=== PATIENT | female | born 1960 | race Caucasian/White ===

== ENCOUNTER 2020-03-24 12:00 | Outpatient (CLI) | payer OTHER, SELFPAY | END 2020-03-24 12:01 | disposition home or self-care (01) | LOC: SLEEP 03-25 12:22 | PROVIDERS: Family Provider Family Medicine; Visit Provider Internal Medicine | DX: G47.33 Obstructive sleep apnea (adult) (pediatric) (principal) | CPT/HCPCS: G0399 ==

== ENCOUNTER 2020-04-24 13:40 | Outpatient (CLI) | payer OTHER, SELFPAY ==
--- NOTE | 2020-04-24 13:51 | MM_ITS ---
WS: [id number] BILATERAL DIGITAL SCREENING MAMMOGRAPHY WITH CAD CLINICAL INFORMATION: SCREENING HISTORY: Screening mammogram. No current complaints. COMPARISON: TECHNIQUE: Bilateral CC and MLO views. FINDINGS: Scattered fibroglandular densities bilaterally. No suspicious focal mass, asymmetry, calcifications, or architectural distortion. Stable ovoid nodules right breast. No evidence of malignancy. Lucent leatha tered calcification right breast MM/[place] [id number] IMPRESSION: BI-RADS: 2-Benign FOLLOW UP: 1 Year Follow-up Recommend return to annual screening mammography.
--- NOTE | 2020-04-24 14:35 | XR_ITS ---
WS: [id number] DEXA (DUAL ENERGY X-RAY ABSORPTIOMETRY) Bone mineral density was performed using a [employer] machine. HISTORY: ASYMPTOMATIC POSTMENOPAUSAL STATUS COMPARISON: None available. Lumbar spine BMD (L1-L4): 1.046 g/cm2 T score: -1.1 Z score: -0.5 Total hip BMD: Left: 1.033 g/cm2. T score: 0.2 Z score: 0.7 Right: 1.039 g/cm2. T score: 0.2 Z score: 0.8 10 year probability of a major osteoporotic fracture is 7%. XR/XR DEXA axial skeleton* [id number] IMPRESSION: OSTEOPENIA based upon the WHO classification for females.
--- NOTE | 2020-04-24 14:36 | XR_ITS ---
WS: [id number] RIGHT FOOT: 3 VIEW(S) TECHNIQUE: AP, oblique and lateral. HISTORY: PAIN IN RIGHT FOOT COMPARISON: None available. No acute fracture or dislocation. Normal tarsal/metatarsal alignment. No soft tissue abnormality or bone destruction. Very tiny calcaneal spur. Enthesopathy at the Achilles tendon. XR/XR foot RT min 3V* [id number] IMPRESSION: Tiny calcaneal spur. No fracture.
== END 2020-04-24 13:41 | disposition home or self-care (01) ==
LOC: RADSHAW 13:46
PROVIDERS: PCP Internal Medicine; Visit Provider Internal Medicine
DX: Z12.31 Encounter for screening mammogram for malignant neoplasm of breast (principal); Z78.0 Asymptomatic menopausal state; M79.671 Pain in right foot; M77.31 Calcaneal spur, right foot; M85.89 Other specified disorders of bone density and structure, multiple sites
CPT/HCPCS: 73630; 77067; 77080

== ENCOUNTER 2020-05-20 04:41 | Emergency (ER) | payer OTHER, SELFPAY ==
[2020-05-20] VITALS (8 sets, daily range): BP systolic 96–160; BP diastolic 56–91; PULSE 74–93; RESP 15–19; TEMP 36.4; O2SAT 95–99; BMI 32.2
--- NOTE | 2020-05-20 04:48 | XR_ITS ---
WS: [id number] Exam: XR chest 1V portable [id number] Date/Time of Exam: 05/20/2020 4:48 AM Reason For Exam: Chest pain Comparison 01/09/2011. Findings: The lungs are clear and fully expanded. Costophrenic angles are sharp. No infiltrates. Bronchovascula r relief appears normal. Cardiac silhouette is unremarkable. Bony elements are intact. XR/XR chest 1V portable [id number] IMPRESSION: Unremarkable chest radiograph.
--- NOTE | 2020-05-20 04:48 | ECG_ITS ---
[facility] Test Date: 2020-05-20 Pat Name: Carrie Bowen Department: Room: Gender: Female Sheriffs Officer: : 1960 Requested By: Abril Tejada Order Number: [id number] Avis MD: Shantell Peterson M.D. Measurements Intervals [place] Rate: 88 P: 68 IN: 147 QRS: -3 QRSD: 86 T: 60 QT: 358 QTc: 434 Interpretive Statements SINUS RHYTHM LOW QRS VOLTAGE IN PRECORDIAL LEADS [QRS DEFLECTION < 1.0 mV IN CHEST LEADS] No previous ECG available for comparison Electronically Signed On 05-20-2020 21:44:26 ICE SELLER by Shnatell Peterson M.D. [email or web address] medical [id number] f
[2020-05-20] MEDS: nitroglycerin 0.4 mg sublingual Tablet SUBLINGUAL (04:59)
[2020-05-20 05:13] LABS: Basophils # 0.1 10^3/uL (0.0-0.1); Basophils % 0.4 %; Eosinophils # 0.2 10^3/uL (0.0-0.8); Eosinophils % 1.2 %; Hematocrit 45.2 % (37.0-47.0); Hemoglobin 14.4 g/dL (11.5-15.3); Lymphocytes # 1.5 10^3/uL (0.8-4.8); Lymphocytes % 11.4 %; Mean Corpuscular HGB Conc 31.9 g/dL (30.0-36.0); Mean Corpuscular Hemoglobin 29.8 pg (28.0-34.0); Mean Corpuscular Volume 93.4 fL (81-99); Mean Platelet Volume 11.6 fL (7.4-10.4); Monocytes # 1.3 10^3/uL (0.2-0.9); Monocytes % 9.8 %; Neutrophils % 76.7 %; Nucleated Red Blood Cells % 0 %; Platelet Count 168 10^3/cmm (130-400); Red Blood Count 4.84 10^6/uL (4.1-5.3); Red Cell Distribution Width 12.7 % (12.1-15.1); White Blood Count 12.9 10^3/uL (4.0-10.0)
[2020-05-20] MEDS: ondansetron 2 mg/ML SDV 2 mL 4 MG IVP (05:20)
[2020-05-20] MEDS: morphine 4 mg/mL SDV 1 mL IVP (05:21)
--- NOTE | 2020-05-20 05:29 | ED_ITS ---
Documented by User: Abril Andres MD 05/22/20 11:00 HPI - Chest Pain General: Chief Complaint: Chest Pain Stated Complaint: cp Time Seen by Provider: 05/20/20 04:50 History of Present Illness: HPI narrative: This patient is a 59-year-old female who comes in today with chest pain. She actually corrects me when I say chest pain and refers to it as pressure. Her symptoms started off and on during the day yesterday while she was at work. The current episode started at 230 when it woke her from sleep. She sleeps with a CPAP but after she took that off she fell like she was somewhat short of breath. The pain is severe in her right shoulder as well. She said yesterday during the day she had some pain in her jaw. She is not sweaty or lightheaded. She does not have nausea or vomiting. She has a chronic cough which she attributes to lisinopril. She has not been sick with fevers. She notes that the pain seems to be worse when she lays down. She has a family history of cardiac disease but none personally. She has never had a stress test. She has hypertension, prediabetes, elevated cholesterol. complaint: chest heaviness Onset (ago): day(s) (1) Timing of current episode: episodic Onset: awoke with symptoms Pain location: substernal Pain radiation: right shoulder Severity: severe Quality: tightness and heaviness Relieving factors: nothing Exacerbating factors: supine Associated symptoms: Reports dyspnea; Deny diaphoresis, fever(s), leg edema or nausea Review of Systems General: Reports: 10 or more systems reviewed and unremarkable except in HPI and below Const: Denies: fever(s) or diaphoresis Eyes: Denies: change in vision ENMT: Denies: odynophagia Card: Reports: chest pain; Denies: swelling of feet/ankles Resp: Reports: dyspnea GI: Denies: nausea : Denies: flank pain or difficulty voiding Musc: Denies: neck pain or back pain Skin/Breast: Denies: rash Neuro: Denies: headache(s), numbness in extremities or weakness in extremities Compa/Lymph: Denies: easy bruising or easy bleeding PFS ED PFSH: Medical History (Reviewed 05/21/20 @ 22:33 by James Fisher MD, [facility]) Dyslipidemia Hypertension Migraines Restless leg syndrome Sleep apnea Surgical History (Reviewed 05/21/20 @ 22:33 by James Fisher MD, [facility]) History of hysterectomy Hx of appendectomy Hx of cholecystectomy Family History (Reviewed 05/21/20 @ 22:33 by James Fisher MD, [facility]) Denies family history of CAD (coronary artery disease) Social History (Reviewed 05/21/20 @ 22:33 by James Fisher MD, [facility]) Smoking and tobacco status: never smoked Alcohol intake: never Substance/Drug Use: never Household members: spouse Housing: House Physical Exam Const: COMMON NORMALS: no acute distress, patient oriented x3, no limitations and alert GENERAL APPEARANCE: cooperative and comfortable HENMT: HEAD & SCALP: normal to inspection FACE & SINUS: normal facial exam Eye: GENERAL EYE: appearance normal, both eyes and all related structures Neck/C-Spine: COMMON NORMALS: supple, no meningeal signs and no JVD Chest: COMMONS NORMALS: normal inspection of the chest Resp: COMMON NORMALS: normal respiratory effort, No use of accessory muscles and clear to auscultation bilaterally AUSCULTATION: clear to auscultation bilaterally Cardio: COMMON NORMALS: no JVD, regular rate, regular rhythm and No murmurs present (Cardio) RATE: regular rate RHYTHM: regular rhythm GI: COMMON NORMALS: Normal to inspection, nondistended, normoactive bowel sounds present, Soft to palpation and non-tender INSPECTION: Yes normal to inspection AUSCULTATION: Yes normoactive bowel sounds PALPATION: Yes Soft to palpation Back/Pelvis: COMMON NORMALS: thoracic and lumbar spine normal to inspection Extremity: COMMON NORMALS: normal to inspection Neuro: COMMON NORMALS: patient oriented x3, moves all extremities, no focal motor deficits and no sensory deficits noted SENSORIUM/ORIENTATION: Yes alert MENINGEAL SIGNS: Yes no meningeal signs Psych: COMMON NORMALS: mental status grossly normal, cooperative and normal affect Skin: COMMON NORMALS: no rashes or lesions noted and turgor normal GENERAL SKIN EXAM: no rashes or lesions noted and turgor normal Course Vital Signs: Vital signs: Vital Signs Temperature 97.6 F 05/20/20 04:49 Pulse Rate 75 05/20/20 08:25 Respiratory Rate 15 11/17/20 08:25 Blood Pressure 132/74 11/17/20 08:25 Pulse Oximetry 97 05/20/20 08:25 MDM - Chest Pain Lab Data: Labs: Lab Results 05/20/20 05/20/20 05/20/20 Range/Units 04:57 04:57 04:57 WBC 12.9 H (4.0-10.0) 10^3/ uL RBC 4.84 (4.1-5.3) 10^6/u L Hgb 14.4 (11.5-15.3) g/dL Hct 45.2 (37.0-47.0) % MCV 93.4 (81-99) fL MCH 29.8 (28.0-34.0) pg MCHC 31.9 (30.0-36.0) g/dL RDW 12.7 (12.1-15.1) % Plt Count 168 (130-400) 10^3/c mm MPV 11.6 H (7.4-10.4) fL Neut % (Auto) 76.7 % Lymph % (Auto) 11.4 % Roberts % (Auto) 9.8 % Eos % (Auto) 1.2 % Baso % (Auto) 0.4 % Neut # (Auto) 9.90 H (1.8-7.7) 10^3/u L Lymph # (Auto) 1.5 (0.8-4.8) 10^3/u L Roberts # (Auto) 1.3 H (0.2-0.9) 10^3/u L Eos # (Auto) 0.2 (0.0-0.8) 10^3/u L Baso # (Auto) 0.1 (0.0-0.1) 10^3/u L Nucleated RBC % (a uto) 0 % Nucleated RBCs # 0.0 /100WBC D-Dimer (0-0.59) ug/mIFE U Sodium 140 (136-145) mmol/L Potassium 4.0 (3.5-5.1) mmol/L Chloride 101 (98-107) mmol/L Carbon Dioxide 27 (22-29) mmol/L Anion Gap 16.0 (5-19) BUN 14 (8-23) mg/dL Creatinine 0.8 (0.5-0.9) mg/dL GFR Calculation 73.2 L (90-130) mL/min Glucose 138 H (65-115) mg/dL Calculated Osmolal ity 293 (285-295) mOsm/k g Calcium 10.5 (8.5-10.5) mg/dL Total Bilirubin 0.7 (0.15-1.2) mg/dL AST 47 H (0-32) U/L ALT 48 H (0-33) U/L Alkaline Phosphata se 123 H (35-105) IU/L Troponin T Baselin e 8 (0-10) ng/L Troponin T 120 Min [place] (0-10) ng/L Delta Troponin T (0-10) ABS# NT-Pro-B Natriuret Pep 52 (0-125) pg/mL Total Protein 7.1 (6.6-8.7) g/dL Albumin 4.7 (3.5-5.2) g/dL Globulin 2.4 (1.3-4.6) g/dL Lipase 26 (13-60) U/L 05/20/20 05/20/20 Range/Units 04:57 06:45 WBC (4.0-10.0) 10^3/ uL RBC (4.1-5.3) 10^6/u L Hgb (11.5-15.3) g/dL Hct (37.0-47.0) % MCV (81-99) fL MCH (28.0-34.0) pg MCHC (30.0-36.0) g/dL RDW (12.1-15.1) % Plt Count (130-400) 10^3/c mm MPV (7.4-10.4) fL Neut % (Auto) % Lymph % (Auto) % Roberts % (Auto) % Eos % (Auto) % Baso % (Auto) % Neut # (Auto) (1.8-7.7) 10^3/u L Lymph # (Auto) (0.8-4.8) 10^3/u L Roberts # (Auto) (0.2-0.9) 10^3/u L Eos # (Auto) (0.0-0.8) 10^3/u L Baso # (Auto) (0.0-0.1) 10^3/u L Nucleated RBC % (a uto) % Nucleated RBCs # /100WBC D-Dimer <= 0.27 (0-0.59) ug/mIFE U Sodium (136-145) mmol/L Potassium (3.5-5.1) mmol/L Chloride (98-107) mmol/L Carbon Dioxide (22-29) mmol/L Anion Gap (5-19) BUN (8-23) mg/dL Creatinine (0.5-0.9) mg/dL GFR Calculation (90-130) mL/min Glucose (65-115) mg/dL Calculated Osmolal ity (285-295) mOsm/k g Calcium (8.5-10.5) mg/dL Total Bilirubin (0.15-1.2) mg/dL AST (0-32) U/L ALT (0-33) U/L Alkaline Phosphata se (35-105) IU/L Troponin T Baselin e (0-10) ng/L Troponin T 120 Min [place] 6.29 (0-10) ng/L Delta Troponin T -1.71 L (0-10) ABS# NT-Pro-B Natriuret Pep (0-125) pg/mL Total Protein (6.6-8.7) g/dL Albumin (3.5-5.2) g/dL Globulin (1.3-4.6) g/dL Lipase (13-60) U/L Discharge Plan Discharge Patient Disposition: Home Clinical Impression: Atypical chest pain Condition: Stable Prescriptions: New aspirin 81 mg tablet,chewable 81 mg PO DAILY Qty: 30 RF: 0 No Action ibuprofen 200 mg Tablet 400 mg PO PRN RF: 0 omeprazole 20 mg Capsule,Delayed Release(Dr/Ec) 20 mg PO DAILY RF: 0 lisinopril-hydrochlorothiazide 20-12.5 mg tablet 1 tab PO DAILY RF: 0 ferrous sulfate [iron] 325 mg (65 mg iron) tablet 325 mg PO DAILY RF: 0 pramipexole 0.125 mg tablet 0.125 mg PO BEDTIME RF: 0 rosuvastatin 5 mg tablet 5 mg PO DAILY RF: 0 CoQ-10 1 tab PO DAILY RF: 0 Multivitamin 50 Plus 1 tab PO DAILY RF: 0 Vitamin D3 1 tab PO DAILY RF: 0 magnesium 1 tab PO DAILY RF: 0 Discharge Orders: Discharge Order (Routine); Ordered 05/20/20 Ordered By: Denis Blakely Referrals: Misty Ruiz MD [Primary Care Provider] - Coding Level of Care Code ED Senior Fire Protection Engineer for Chg Fwd Exam Comprehensive Documented by User: Denis Blakely, 05/20/20 09:10 HPI - Chest Pain General: Chief Complaint: Chest Pain Stated Complaint: cp Time Seen by Provider: 05/20/20 04:50 PFSH ED PFSH: Medical History (Reviewed 05/21/20 @ 22:33 by James Fisher MD, [facility]) Dyslipidemia Hypertension Migraines Restless leg syndrome Sleep apnea Surgical History (Reviewed 05/21/20 @ 22:33 by James Fisher MD, [facility]) History of hysterectomy Hx of appendectomy Hx of cholecystectomy Family History Denies family history of CAD (coronary artery disease) Social History (Reviewed 05/21/20 @ 22:33 by James Fisher MD, [facility]) Smoking and tobacco status: never smoked Alcohol intake: never Substance/Drug Use: never Household members: spouse Housing: House Course Vital Signs: Vital signs: Vital Signs Temperature 97.6 F 05/20/20 04:49 Pulse Rate 75 05/20/20 08:25 Respiratory Rate 15 05/20/20 08:25 Blood Pressure 132/74 05/20/20 08:25 Pulse Oximetry 97 05/20/20 08:25 MDM - Chest Pain MDM Narrative: Medical decision making narrative: Care assumed from Dr. Roberts at change of shift. Serial troponins are negative at the 2-hour su. EKG does not show any acute ST changes. She is previously had appendectomy and cholecystectomy. We will go ahead and discharge her home with baby aspirin daily continue on her other medications and we will set her up for a sestamibi stress test Lab Data: Labs: Lab Results 05/20/20 05/20/20 05/20/20 Range/Units 04:57 04:57 04:57 WBC 12.9 H (4.0-10.0) 10^3/ uL RBC 4.84 (4.1-5.3) 10^6/u L Hgb 14.4 (11.5-15.3) g/dL Hct 45.2 (37.0-47.0) % MCV 93.4 (81-99) fL MCH 29.8 (28.0-34.0) pg MCHC 31.9 (30.0-36.0) g/dL RDW 12.7 (12.1-15.1) % Plt Count 168 (130-400) 10^3/c mm MPV 11.6 H (7.4-10.4) fL Neut % (Auto) 76.7 % Lymph % (Auto) 11.4 % Roberts % (Auto) 9.8 % Eos % (Auto) 1.2 % Baso % (Auto) 0.4 % Neut # (Auto) 9.90 H (1.8-7.7) 10^3/u L Lymph # (Auto) 1.5 (0.8-4.8) 10^3/u L Roberts # (Auto) 1.3 H (0.2-0.9) 10^3/u L Eos # (Auto) 0.2 (0.0-0.8) 10^3/u L Baso # (Auto) 0.1 (0.0-0.1) 10^3/u L Nucleated RBC % (a uto) 0 % Nucleated RBCs # 0.0 /100WBC D-Dimer (0-0.59) ug/mIFE U Sodium 140 (136-145) mmol/L Potassium 4.0 (3.5-5.1) mmol/L Chloride 101 (98-107) mmol/L Carbon Dioxide 27 (22-29) mmol/L Anion Gap 16.0 (5-19) BUN 14 (8-23) mg/dL Creatinine 0.8 (0.5-0.9) mg/dL GFR Calculation 73.2 L (90-130) mL/min Glucose 138 H (65-115) mg/dL Calculated Osmolal ity 293 (285-295) mOsm/k g Calcium 10.5 (8.5-10.5) mg/dL Total Bilirubin 0.7 (0.15-1.2) mg/dL AST 47 H (0-32) U/L ALT 48 H (0-33) U/L Alkaline Phosphata se 123 H (35-105) IU/L Troponin T Baselin e 8 (0-10) ng/L Troponin T 120 Min [place] (0-10) ng/L Delta Troponin T (0-10) ABS# NT-Pro-B Natriuret Pep 52 (0-125) pg/mL Total Protein 7.1 (6.6-8.7) g/dL Albumin 4.7 (3.5-5.2) g/dL Globulin 2.4 (1.3-4.6) g/dL Lipase 26 (13-60) U/L 05/20/20 05/20/20 Range/Units 04:57 06:45 WBC (4.0-10.0) 10^3/ uL RBC (4.1-5.3) 10^6/u L Hgb (11.5-15.3) g/dL Hct (37.0-47.0) % MCV (81-99) fL MCH (28.0-34.0) pg MCHC (30.0-36.0) g/dL RDW (12.1-15.1) % Plt Count (130-400) 10^3/c mm MPV (7.4-10.4) fL Neut % (Auto) % Lymph % (Auto) % Roberts % (Auto) % Eos % (Auto) % Baso % (Auto) % Neut # (Auto) (1.8-7.7) 10^3/u L Lymph # (Auto) (0.8-4.8) 10^3/u L Roberts # (Auto) (0.2-0.9) 10^3/u L Eos # (Auto) (0.0-0.8) 10^3/u L Baso # (Auto) (0.0-0.1) 10^3/u L Nucleated RBC % (a uto) % Nucleated RBCs # /100WBC D-Dimer <= 0.27 (0-0.59) ug/mIFE U Sodium (136-145) mmol/L Potassium (3.5-5.1) mmol/L Chloride (98-107) mmol/L Carbon Dioxide (22-29) mmol/L Anion Gap (5-19) BUN (8-23) mg/dL Creatinine (0.5-0.9) mg/dL GFR Calculation (90-130) mL/min Glucose (65-115) mg/dL Calculated Osmolal ity (285-295) mOsm/k g Calcium (8.5-10.5) mg/dL Total Bilirubin (0.15-1.2) mg/dL AST (0-32) U/L ALT (0-33) U/L Alkaline Phosphata se (35-105) IU/L Troponin T Baselin e (0-10) ng/L Troponin T 120 Min [place] 6.29 (0-10) ng/L Delta Troponin T -1.71 L (0-10) ABS# NT-Pro-B Natriuret Pep (0-125) pg/mL Total Protein (6.6-8.7) g/dL Albumin (3.5-5.2) g/dL Globulin (1.3-4.6) g/dL Lipase (13-60) U/L Discharge Plan Discharge Patient Disposition: Home Clinical Impression: Atypical chest pain Condition: Stable Prescriptions: New aspirin 81 mg tablet,chewable 81 mg PO DAILY Qty: 30 RF: 0 No Action ibuprofen 200 mg Tablet 400 mg PO PRN RF: 0 omeprazole 20 mg Capsule,Delayed Release(Dr/Ec) 20 mg PO DAILY RF: 0 lisinopril-hydrochlorothiazide 20-12.5 mg tablet 1 tab PO DAILY RF: 0 ferrous sulfate [iron] 325 mg (65 mg iron) tablet 325 mg PO DAILY RF: 0 pramipexole 0.125 mg tablet 0.125 mg PO BEDTIME RF: 0 rosuvastatin 5 mg tablet 5 mg PO DAILY RF: 0 CoQ-10 1 tab PO DAILY RF: 0 Multivitamin 50 Plus 1 tab PO DAILY RF: 0 Vitamin D3 1 tab PO DAILY RF: 0 magnesium 1 tab PO DAILY RF: 0 Discharge Orders: Discharge Order (Routine); Ordered 05/20/20 Ordered By: Denis Blakely Referrals: Misty Ruiz MD [Primary Care Provider] - Coding Level of Care Code ED Senior Fire Protection Engineer for Chg Fwd Exam Comprehensive
[2020-05-20] MEDS: aspirin 81 mg Chew Tablet 324 MG PO (05:41)
[2020-05-20 05:51] LABS: Troponin(5th) Baseline 8 ng/L (0-10)
[2020-05-20 05:52] LABS: Alanine Aminotransferase 48 U/L (0-33); Albumin Level 4.7 g/dL (3.5-5.2); Alkaline Phosphatase 123 IU/L (35-105); Aspartate Amino Transferase 47 U/L (0-32); Blood Urea Nitrogen 14 mg/dL (8-23); Calcium 10.5 mg/dL (8.5-10.5); Carbon Dioxide 27 mmol/L (22-29); Chloride 101 mmol/L (98-107); Globulin 2.4 g/dL (1.3-4.6); Glomerular Filtration Rate 73.2 mL/min (90-130); Glucose 138 mg/dL (65-115); Lipase 26 U/L (13-60); NT Pro B Type Natriuretic Pept 52 pg/mL (0-125); Osmolality Calculated 293 mOsm/kg (285-295); Sodium 140 mmol/L (136-145); Total Bilirubin 0.7 mg/dL (0.15-1.2); Total Protein 7.1 g/dL (6.6-8.7)
[2020-05-20 06:06] LABS: D Dimer <= 0.27 ug/mIFEU (0-0.59)
--- NOTE | 2020-05-20 06:48 | ECG_ITS ---
[facility] Test Date: 2020-05-20 Pat Name: Carrie Bowen Department: Room: Gender: Female Mathematical Scientist: : 1960 Requested By: Abril Tejada Order Number: [id number] Avis MD: Shantell Peterson M.D. Measurements Intervals [place] Rate: 66 P: 58 [place]: 150 QRS: 9 QRSD: 82 T: 51 QT: 401 QTc: 422 Interpretive Statements SINUS RHYTHM LOW QRS VOLTAGE IN PRECORDIAL LEADS [QRS DEFLECTION < 1.0 mV IN CHEST LEADS] Compared to ECG 05/20/2020 04:50:05 ST (T wave) deviation now present Electronically Signed On 05-21-2020 8:06:20 BROWN SOURER by Shantell Peterson M.D. [id number]
[2020-05-20 07:19] LABS: Troponin 5 2HR 6.29 ng/L (0-10)
[2020-05-20 07:20] LABS: Troponin 5 2HR Delta -1.71 ABS# (0-10)
[2020-05-20] MEDS: lidocaine 2% viscous 15 ML, aluminum-mag hydrox-simethicon 30 ML, sucralfate oral liq 1 GM PO (08:12)
--- NOTE | 2020-05-20 10:48 | ECG_ITS ---
[facility] Test Date: 2020-05-20 Pat Name: Carrie Bowen Department: Room: Gender: Female Candy Maker: : 1960 Requested By: Abril Tejada Order Number: [id number] Avis MD: Shantell Peterson M.D. Measurements Intervals [place] Rate: 79 P: 58 [place]: 132 QRS: 9 QRSD: 86 T: 56 QT: 370 QTc: 426 Interpretive Statements SINUS RHYTHM LOW QRS VOLTAGE IN PRECORDIAL LEADS [QRS DEFLECTION < 1.0 mV IN CHEST LEADS] Compared to ECG 05/20/2020 06:34:35 ST (T wave) deviation no longer present Myocardial infarct finding no longer present Electronically Signed On 05-20-2020 21:53:20 CASE MANAGERS by Shantell Peterson M.D. [id number] f
--- NOTE | 2020-05-20 15:31 | DCPLANNER ---
hotel office manager had message to schedule a follow up appointment for patient for an outpatient stress test. hotel office manager faxed order to centralized scheduling, will call for appointment information.
--- NOTE | 2020-06-18 09:54 | DCPLANNER ---
Centralized scheduling contacted binder caser stating that patients insurance denied stress test for patient. manager policy called patient and left a voicemail for patient that she would need to follow up her primary care. manager policy left a message for patient to return caser up phone call.
== END 2020-05-20 08:26 | disposition home or self-care (01) ==
PROVIDERS: Emergency Medicine; Emergency Provider Family Medicine; PCP Internal Medicine
DX: R07.89 Other chest pain (principal); E78.5 Hyperlipidemia, unspecified; I10 Essential (primary) hypertension
CPT/HCPCS: 12345; 71045; 80053; 83690; 83880; 84484; 85025; 85378; 93005; 96374; 96375; 96376; 99282; 99284; J2270; J2405

== ENCOUNTER 2020-05-21 14:54 | Observation (INO) | payer OTHER, SELFPAY ==
[2020-05-21] VITALS (15 sets, daily range): BP systolic 84–157; BP diastolic 55–96; PULSE 95–124; RESP 17–28; TEMP 36.8–37.1; O2SAT 90–98; BMI 32.2
--- NOTE | 2020-05-21 16:19 | XR_ITS ---
WS: [id number] Exam: XR chest 1V portable [id number] Date/Time of Exam: 05/21/2020 4:22 PM Reason For Exam: CP Comparison 05/20/2020. The lungs are clear and fully expanded. No pleural effusions. Normal cardiomediastinal structures and regional bony elements. XR/XR chest 1V portable [id number] IMPRESSION: 1. No acute cardiopulmonary finding. No change.
--- NOTE | 2020-05-21 16:19 | ECG_ITS ---
[facility] Test Date: 2020-05-21 Pat Name: Carrie Bowen Department: Room: Gender: Female Program Admin: : 1960 Requested By: James Fisher I Order Number: [id number] Reading MD: GRANT LEDESMA Measurements Intervals [place] Rate: 102 P: 64 DC: 132 QRS: -8 QRSD: 82 T: 47 QT: 334 QTc: 436 Interpretive Statements SINUS TACHYCARDIA ABNORMAL RHYTHM ECG Compared to ECG 05/20/2020 06:41:45 Sinus rhythm no longer present Electronically Signed On 05-21-2020 19:36:32 PHYSICIAN INDUSTRIAL by GRANT LEDESMA [id number] f
[2020-05-21] MEDS: aspirin 81 mg Chew Tablet 243 MG PO (16:55)
[2020-05-21] MEDS: nitroglycerin 1 gm/inch oint Pkt 1 INCH TOPICAL (16:55)
[2020-05-21 16:56] LABS: Basophils % 0.3 %; Eosinophils # 0.1 10^3/uL (0.0-0.8); Hematocrit 44.2 % (37.0-47.0); Hemoglobin 14.1 g/dL (11.5-15.3); Lymphocytes # 1.6 10^3/uL (0.8-4.8); Lymphocytes % 13.8 %; Mean Corpuscular HGB Conc 31.9 g/dL (30.0-36.0); Mean Corpuscular Hemoglobin 30.2 pg (28.0-34.0); Mean Corpuscular Volume 94.6 fL (81-99); Mean Platelet Volume 11.8 fL (7.4-10.4); Monocytes # 1.1 10^3/uL (0.2-0.9); Monocytes % 9.4 %; Neutrophils # 8.73 10^3/uL (1.8-7.7); Neutrophils % 74.9 %; Nucleated Red Blood Cells % 0 %; Platelet Count 175 10^3/cmm (130-400); Red Blood Count 4.67 10^6/uL (4.1-5.3); Red Cell Distribution Width 13.2 % (12.1-15.1); White Blood Count 11.7 10^3/uL (4.0-10.0)
[2020-05-21] MEDS: fentaNYL 50 mcg/mL INJ 2mL IVP (17:22)
[2020-05-21] MEDS: ondansetron 2 mg/ML SDV 2 mL 4 MG IVP (17:25)
[2020-05-21 17:29] LABS: INR 1.05 (0.8-1.2)
[2020-05-21 17:31] LABS: D Dimer 0.77 ug/mIFEU (0-0.59)
[2020-05-21 17:44] LABS: Troponin(5th) Baseline 12 ng/L (0-10)
--- NOTE | 2020-05-21 18:19 | ECG_ITS ---
[facility] Test Date: 2020-05-21 Pat Name: Carrie Bowen Department: Room: Gender: Female Renewable Energy Engineer: : 1960 Requested By: James Fisher I Order Number: [id number] Reading MD: GRANT LEDESMA Measurements Intervals [place] Rate: 100 P: 14 ID: 142 QRS: 2 QRSD: 89 T: 25 QT: 338 QTc: 438 Interpretive Statements SINUS TACHYCARDIA ABNORMAL RHYTHM ECG Compared to ECG 05/21/2020 15:10:40 No significant changes Electronically Signed On 05-21-2020 19:38:16 COUNTER ROLLER by GRANT LEDESMA [id number]
[2020-05-21 20:07] LABS: Troponin 5 2HR 11.64 ng/L (0-10)
[2020-05-21 20:16] LABS: Troponin 5 2HR Delta -0.36 ABS# (0-10)
[2020-05-21 20:39] LABS: Alanine Aminotransferase 59 U/L (0-33); Albumin Level 3.8 g/dL (3.5-5.2); Alkaline Phosphatase 111 IU/L (35-105); Blood Urea Nitrogen 13 mg/dL (8-23); Calcium 9.2 mg/dL (8.5-10.5); Carbon Dioxide 26 mmol/L (22-29); Chloride 99 mmol/L (98-107); Globulin 3.1 g/dL (1.3-4.6); Glomerular Filtration Rate 85.4 mL/min (90-130); Glucose 129 mg/dL (65-115); Lipase 17 U/L (13-60); NT Pro B Type Natriuretic Pept 376 pg/mL (0-125); Osmolality Calculated 284 mOsm/kg (285-295); Sodium 136 mmol/L (136-145); Total Bilirubin 0.6 mg/dL (0.15-1.2); Total Protein 6.9 g/dL (6.6-8.7)
[2020-05-21 20:56] LABS: Anion Gap 14.9 (5-19); Aspartate Amino Transferase 49 U/L (0-32); Potassium 3.9 mmol/L (3.5-5.1)
--- NOTE | 2020-05-21 20:58 | PM.HP ---
Providers/Chief Complaint Primary Care Provider: Misty Ruiz MD Chief Complaint: HEART PALPITATIONS, HTN, SOB History of Present Illness Carrie Bowen is a 59 year old female who carries history of hypertension, dyslipidemia, sleep apnea came in with chief complaint of chest discomfort. Patient was seen in the ER on Tuesday when she experienced chest pain which she describing as pressure-like sensation someone sitting on her chest, it was radiating towards her jaw, her pain started after she came back from work, she initially attributed her pain to tooth ache, her chest pain did not subside all night and next day when she went to her workplace, her symptoms started getting worse, she was seen in the ER and was discharged with recommendation of outpatient stress test. She is returning today with chief complaint of mild chest discomfort again she is describing it as some heaviness but basically complaining of bilateral shoulder pains, she has not noticed any nausea, vomiting, dizziness, syncope. 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 She is endorsing family history of coronary disease, brother of heart disease. She is using CPAP, no orthopnea or PND. Her heart rate was consistently high in the 130s. Because of these concerning symptoms she came back to the hospital. She has been tachycardic in the ER, normal blood pressure, D-dimer 0.7, I have requested CTA chest, troponin negative delta EKG without ischemic or infarctive changes, I would give her ketorolac for bilateral shoulder pain, I have removed Nitropaste, Review of Systems Const: Reports: body aches, fatigue and malaise; Denies: fever(s) or chills Eyes: Denies: change in vision ENMT: Denies: throat pain Card: Reports: chest pain, lightheadedness and dyspnea on exertion; Denies: orthopnea Resp: Reports: dyspnea GI: Denies: abdominal pain : Denies: flank pain Musc: Reports: neck pain and joint pain Skin/Breast: Denies: rash Neuro: Denies: headache(s) Psych: Denies: anxiety Endo: Denies: polyuria Compa/Lymph: Denies: easy bruising All/Imm: Denies: urticaria Medications/Allergies Home Medications Medication Instructions Recorded Confirmed Last Taken Type CoQ-10 1 tab PO DAILY 05/20/20 05/21/20 05/20/20 History Multivitamin 50 Plus 1 tab PO DAILY 05/20/20 05/21/20 05/21/20 History Vitamin D3 1 tab PO DAILY 05/20/20 05/21/20 05/20/20 History aspirin 81 mg PO DAILY #30 tab 05/20/20 05/21/20 05/21/20 Rx ferrous sulfate [iron] 325 mg PO DAILY 05/20/20 05/21/20 05/20/20 History lisinopril-hydrochlorothiazide 1 tab PO DAILY 05/20/20 05/21/20 05/21/20 07:00 History magnesium 1 tab PO DAILY 05/20/20 05/21/20 05/19/20 History pramipexole 0.125 mg PO BEDTIME 05/20/20 05/21/20 05/20/20 History rosuvastatin 5 mg PO DAILY 05/20/20 05/21/20 05/20/20 History ibuprofen 400 mg PO PRN 05/21/20 05/21/20 05/21/20 History omeprazole 20 mg PO DAILY 05/21/20 05/21/20 05/21/20 History Allergies Allergy/AdvReac Type Severity Reaction Status Date / Time codeine Allergy ADR-Vomitin Verified 05/21/20 15:49 g propoxyphene [From Darvon] Allergy ALGY-Rash Verified 05/21/20 15:49 Sulfa (Sulfonamide Allergy ALGY-Rash Verified 05/21/20 15:49 Antibiotics) PFSH Acute PFSH: Medical History Dyslipidemia Hypertension Migraines Restless leg syndrome Sleep apnea Surgical History History of hysterectomy Hx of appendectomy Hx of cholecystectomy Family History Denies family history of CAD (coronary artery disease) Social History Smoking and tobacco status: never smoked Alcohol intake: never Substance/Drug Use: never Household members: spouse Housing: House Vitals/I&O/Wt Last Vital Signs Temp 98.7 F 05/21/20 14:59 Pulse 106 H 05/21/20 20:40 Resp 17 05/21/20 20:40 BP 114/96 05/21/20 20:40 Pulse Ox 94 05/21/20 20:40 Weight last 48 hrs Weight 82.554 kg Physical Exam Narrative: EXAM NARRATIVE: Very pleasant middle-aged woman No acute respiratory distress Sinus tachycardic Saturating well on room air Does not look in any kind of distress I have removed Nitropaste No active chest pain S1, S2 sinus tachycardia Abdomen distended, nontender Lower extremity no edema gangrene or ulcer Appropriate mood and affect EOMI, PERRLA No neurological deficit Awake alert oriented x3 GCS 15 Arm flexion extension abduction did not elicit any pain however mild tenderness on abduction of arms bilaterally, her chest pain is not reproducible, No proximal muscle weakness Data : 05/21/20 16:30 05/21/20 16:30 A&P Assessment and plan (1) Atypical chest pain: Atypical chest pain At risk for coronary disease include, family history, age, sleep apnea, hypertension, dyslipidemia Negative delta troponin, no ischemic or infarct changes on EKG I will give her GI cocktail Considering high D-dimer would rule out PE, obtain CTA chest I would obtain Lexiscan stress test considering moderate risk factors for coronary disease Status: Acute Additional A&P Information Obstructive sleep apnea: Auto CPAP Cardiac diet for now, n.p.o. after midnight I will give her ketorolac for bilateral shoulder pain DVT prophylaxis Lovenox Check TSH and A1c level Clinically euvolemic no signs of fluid overload No proximal muscle weakness noted, will check ESR to rule out PMR Full code Attestations Medical Necessity Statement*: Anticipating discharge in less than 48 hours currently need CTA chest to rule out PE and Lexiscan stress test in the morning for recurrent atypical chest Time Spent in Patient Care: (>than 50% of time spent in counselling and/or direct pt care on unit). 50mins Coding Level of Care Code Acute Sampler Pickup for Yuki Arnett Diagnoses Atypical chest pain R07.89
--- NOTE | 2020-05-21 21:04 | CTR_ITS ---
PROCEDURE INFORMATION: Exam: CT Angiography Chest With Contrast Exam date and time: 05/21/2020 9:09 PM Age: 59 years old Clinical indication: Pain; Shortness of breath; Chest pressure; Prior surgery; Surgery type: Gb; Additional info: Pe TECHNIQUE: Imaging protocol: Computed tomographic angiography of the chest with intravenous contrast. 3D rendering (Not supervised by radiologist): MIP and/or 3D reconstructed images were created by the technologist. Radiation optimization: All CT scans at this facility use at least one of these dose optimization techniques: automated exposure control; mA and/or kV adjustment per patient size (includes targeted exams where dose is matched to clinical indication); or iterative reconstruction. Contrast material: OMNI 350; Contrast volume: 95 ml; Contrast route: INTRAVENOUS (IV); COMPARISON: CR XR chest 1V portable [id number] 05/21/2020 4:18 PM RADIATION DOSE METRICS: Total DLP (mGy-cm): 550.34 FINDINGS: Pulmonary arteries: No filling defects in the pulmonary arteries to suggest pulmonary embolism. Aorta: Mild atherosclerotic changes in the visualized arteries. No evidence for aortic aneurysm or aortic dissection. Lungs: Tracheobronchial structures are patent. Compresses atelectasis in the right and left lower lobes. No pulmonary parenchymal nodules or masses. Pleural space: Small left pleural effusion. Heart: The heart is unremarkable. No cardiomegaly. No pericardial effusion. Mediastinal space: No mediastinal hematoma. No pneumomediastinum. Lymph nodes: No lymphadenopathy. Liver: The visualized liver is unremarkable. Gallbladder and bile ducts: Patient has had a previous cholecystectomy. No biliary ductal dilatation. Pancreas: The visualized pancreas is unremarkable. No pancreatic ductal dilatation. Spleen: The spleen is unremarkable. Adrenals: The right and left adrenal glands are unremarkable. Kidneys and ureters: The visualized right and left kidneys are unremarkable. Bones/joints: Multilevel degenerative changes of varying severity in the visualized spine. Soft tissues: The extrathoracic soft tissues are unremarkable. CT/CT angio chest PE protcl [id number] IMPRESSION: 1. No evidence for pulmonary embolism. 2. Compresses atelectasis in the right and left lower lobes. 3. Small left pleural effusion. 4. Incidental/nonacute findings are listed in the report. Radiation Dose CTDIVOL = (mGy): DLP = 550.34 (mGy-cm)
[2020-05-21] MEDS: iohexol 350 mg/mL 100 mL Btl IV (21:31)
--- NOTE | 2020-05-21 22:19 | ECG_ITS ---
[facility] Test Date: 2020-06-06 Pat Name: Carrie Bowen Department: Room: 111 Gender: Female Recreational Sports Director: : 1960 Requested By: James Fisher I Order Number: [id number] Reading MD: GRANT LEDESMA Measurements Intervals [place] Rate: 71 P: -22 NH: 200 QRS: -61 QRSD: 165 T: 13 QT: 421 QTc: 459 Interpretive Statements SINUS RHYTHM RIGHT BUNDLE BRANCH BLOCK [120+ ms QRS DURATION, UPRIGHT V1, 40+ ms S IN I/aVL/V4/V5/V6] INFERIOR MYOCARDIAL INFARCTION , PROBABLY OLD [40+ ms Q WAVE AND/OR ST/T ABNORMALITY IN II/aVF] Compared to ECG 05/21/2020 19:01:37 Right bundle-branch block now present Myocardial infarct finding now present Sinus tachycardia no longer present Electronically Signed On 06-07-2020 17:28:18 RO[address] PASSENGER FIRER by GRANT LEDESMA [id number]
--- NOTE | 2020-05-21 22:21 | ECG_ITS ---
[facility] Test Date: 2020-05-22 Pat Name: Carrie Bowen Department: Room: 252 Gender: Female Global Expansion Sales Director: Yue Lamar : 1960 Requested By: Yoan Nowak Order Number: [id number] Avis MD: Shantell Peterson M.D. Interpretive Statements NAME OF STUDY: LEXISCAN SESTAMIBI STRESS TEST INDICATION: Chest Pain PROCEDURE: At the baseline, the blood pressure was 155/73 mmHg, oxygen saturation 94% with a heart rate of 90 bpm. The electrocardiogram showed normal sinus rhythm, normal axis with nonspecific T wave changes. The Lexiscan was infused over a period of 20 seconds. A total of 0.4 milligrams of Lexiscan was infused. The stress phase was continued for a total of 5 minutes. Heart rate at the end of the stress phase was 101 bpm, oxygen saturation 93% with a blood pressure of 154/60 mmHg. The EKG at the peak infusion revealed sinus tachycardia at 101 bpm with no significant ST-T wave changes. The study was terminated due to protocol completion. Isolated PACs noted during infusion. Sestamibi was injected 20 seconds after the Lexiscan infusion. Blood pressure at the end of the recovery phase was 156/61 mmHg, oxygen saturation 93% with a heart rate of 99 beats per minute. CONCLUSION: 1. No significant EKG changes with the LexiScan infusion. 2. No LexiScan induced chest pain or cardiac arrhythmia. 3. Normal blood pressure and heart rate response. 4. Sestamibi/sestamibi perfusion scan pending; see separate report. Electronically Signed On 05-22-2020 13:50:23 MARKET DEVELOPMENT SPECIALIST by Shantell Peterson M.D. [id number]
--- NOTE | 2020-05-21 22:21 | PC.NURSE ---
pt transferred to [facility] surg
[2020-05-21 22:24] LABS: Thyroid Stimulating Hormone 2.16 uIU/mL (0.27-4.20)
--- NOTE | 2020-05-21 22:25 | ED_ITS ---
HPI - Chest Pain General: Chief Complaint: Chest Pain Stated Complaint: HEART PALPITATIONS, HTN, SOB Time Seen by Provider: 05/21/20 15:17 Source: patient and other (Primary care provider) Mode of arrival: ambulatory Limitations: no limitations History of Present Illness: HPI narrative: Patient was seen for the same thing yesterday in this emergency department. She was cleared and discharged home. An outpatient stress test was ordered. However pain returned today similar to the way it was yesterday. Pain is retrosternal radiating to both shoulders and neck. She went to see her primary care provider who was concerned as she was tachycardic at the time with heart rate in the 130s, dyspneic, and with crushing chest pain. She then sent her here for evaluation. Patient still has the pain. complaint: chest pain Onset (ago): day(s) (2) Timing of current episode: episodic Prior episodes: Yes Onset: during rest Pain location: left chest Pain radiation: neck, left shoulder and right shoulder Severity: similar to previous episodes Quality: heaviness Relieving factors: nothing Exacerbating factors: exertion Associated symptoms: Reports dyspnea and palpitations; Deny abdominal pain, diaphoresis, fever(s), leg edema, nausea, sense of impending doom or syncope Treatment prior to arrival: aspirin Review of Systems General: Reports: 10 or more systems reviewed and unremarkable except in HPI and below Const: Denies: fever(s) or diaphoresis Eyes: Denies: change in vision or blurry vision ENMT: Denies: throat pain, enlarged tonsils, odynophagia, hoarseness, mouth pain or swelling of lips/tongue Card: Reports: palpitations; Denies: syncope Resp: Reports: dyspnea GI: Denies: abdominal pain or nausea : Denies: flank pain, difficulty voiding, dysuria, urinary frequency, urinary urgency or urinary hesitancy Musc: Denies: neck pain, back pain or extremity swelling Skin/Breast: Denies: rash, pruritus or erythema Neuro: Denies: headache(s), numbness in extremities or weakness in extremities Endo: Denies: polyuria, polydipsia or tired all the time PFSH ED PFSH: Medical History Dyslipidemia Hypertension Migraines Restless leg syndrome Sleep apnea Surgical History History of hysterectomy Hx of appendectomy Hx of cholecystectomy Family History Denies family history of CAD (coronary artery disease) Social History Smoking and tobacco status: never smoked Alcohol intake: never Substance/Drug Use: never Household members: spouse Housing: House Physical Exam Const: COMMON NORMALS: no acute distress, average body habitus, patient oriented x3, no limitations, healthy appearing, alert and well nourished HENMT: COMMON NORMALS: normocephalic, atraumatic and moist oral mucous membranes HEAD & SCALP: normocephalic and atraumatic Neck/C-Spine: COMMON NORMALS: full ROM, supple, no meningeal signs, no JVD and No carotid bruits Chest: COMMONS NORMALS: normal inspection of the chest and normal palpation of entire chest wall Resp: COMMON NORMALS: normal respiratory effort, No retractions, No use of accessory muscles, clear to auscultation bilaterally and percussion normal AUSCULTATION: clear to auscultation bilaterally PERCUSSION: percussion normal Cardio: COMMON NORMALS: no JVD, regular rate, regular rhythm, S1 normal heart sound present, S2 normal heart sound present, No gallops present (Cardio), No cl icks present (Cardio), No murmurs present (Cardio), No rub (Cardio) and Peripheral pulses 2+ throughout RATE: regular rate RHYTHM: regular rhythm HEART SOUNDS: S1 normal heart sound present and S2 normal heart sound present PERIPHERAL PULSES: Peripheral pulses 2+ throughout GI: COMMON NORMALS: Normal to inspection, nondistended, normoactive bowel sounds present, Soft to palpation, non-tender, No hepatosplenomegaly present, no masses and no bruits PALPATION: Yes Soft to palpation and Yes No hepatosplenomegaly present Extremity: COMMON NORMALS: normal to inspection, full ROM, capillary refill normal, no calf tenderness and no pedal edema Neuro: COMMON NORMALS: patient oriented x3 SENSORIUM/ORIENTATION: Yes alert MENINGEAL SIGNS: Yes no meningeal signs Skin: COMMON NORMALS: no rashes or lesions noted, no wounds, turgor normal, no jaundice, no petechiae and no mottling GENERAL SKIN EXAM: no rashes or lesions noted and turgor normal Course ED course: Patient with recurrent chest pain. Seen in this emergency department yesterday and continues to have pain today. Evaluation in the ED is negative for acute coronary syndrome however her symptoms are concerning enough that she is advised to be admitted for cardiac work-up. She voiced understanding and is in agreement with the plan Consultations: Consultation #1: Dr. Nowak, hospitalist. He kindly accepted the patient to his service. Vital Signs: Vital signs: Vital Signs Temperature 98.7 F 05/21/20 14:59 Pulse Rate 95 05/21/20 22:01 Respiratory Rate 25 H 05/21/20 22:01 Blood Pressure 104/55 05/21/20 22:01 Pulse Oximetry 92 05/21/20 22:01 MDM - Chest Pain MDM Narrative: Medical decision making narrative: Patient with recurrent chest pain. She is admitted to the cardiac stepdown unit for chest pain work-up. Medical Records: Attestation: I reviewed the patient's medical records. Lab Data: Attestation: I reviewed the patient's lab results. Labs: Lab Results 05/21/20 05/21/20 05/21/20 Range/Units 16:30 16:30 16:30 WBC 11.7 H (4.0-10.0) 10^3/ uL RBC 4.67 (4.1-5.3) 10^6/u L Hgb 14.1 (11.5-15.3) g/dL Hct 44.2 (37.0-47.0) % MCV 94.6 (81-99) fL MCH 30.2 (28.0-34.0) pg MCHC 31.9 (30.0-36.0) g/dL RDW 13.2 (12.1-15.1) % Plt Count 175 (130-400) 10^3/c mm MPV 11.8 H (7.4-10.4) fL Neut % (Auto) 74.9 % Lymph % (Auto) 13.8 % [place] % (Auto) 9.4 % Eos % (Auto) 1.0 % Baso % (Auto) 0.3 % Neut # (Auto) 8.73 H (1.8-7.7) 10^3/u L Lymph # (Auto) 1.6 (0.8-4.8) 10^3/u L [place] # (Auto) 1.1 H (0.2-0.9) 10^3/u L Eos # (Auto) 0.1 (0.0-0.8) 10^3/u L Baso # (Auto) 0.0 (0.0-0.1) 10^3/u L Nucleated RBC % (a uto) 0 % Nucleated RBCs # 0.0 /100WBC PT 14.10 (12.1-14.9) SECO NDS INR 1.05 (0.8-1.2) D-Dimer 0.77 H (0-0.59) ug/mIFE U Sodium 136 (136-145) mmol/L Potassium 3.9 (3.5-5.1) mmol/L Chloride 99 (98-107) mmol/L Carbon Dioxide 26 (22-29) mmol/L Anion Gap 14.9 (5-19) BUN 13 (8-23) mg/dL Creatinine 0.7 (0.5-0.9) mg/dL GFR Calculation 85.4 L (90-130) mL/min Glucose 129 H (65-115) mg/dL Calculated Osmolal ity 284 L (285-295) mOsm/k g Calcium 9.2 (8.5-10.5) mg/dL Total Bilirubin 0.6 (0.15-1.2) mg/dL AST 49 H (0-32) U/L ALT 59 H (0-33) U/L Alkaline Phosphata se 111 H (35-105) IU/L Troponin T Baselin e (0-10) ng/L Troponin T 120 Min [place] (0-10) ng/L Delta Troponin T (0-10) ABS# NT-Pro-B Natriuret Pep 376 H (0-125) pg/mL Total Protein 6.9 (6.6-8.7) g/dL Albumin 3.8 (3.5-5.2) g/dL Globulin 3.1 (1.3-4.6) g/dL Lipase 17 (13-60) U/L TSH (0.27-4.20) uIU/ mL 05/21/20 05/21/20 05/21/20 Range/Units 16:30 18:56 18:56 WBC (4.0-10.0) 10^3/ uL RBC (4.1-5.3) 10^6/u L Hgb (11.5-15.3) g/dL Hct (37.0-47.0) % MCV (81-99) fL MCH (28.0-34.0) pg MCHC (30.0-36.0) g/dL RDW (12.1-15.1) % Plt Count (130-400) 10^3/c mm MPV (7.4-10.4) fL Neut % (Auto) % Lymph % (Auto) % [place] % (Auto) % Eos % (Auto) % Baso % (Auto) % Neut # (Auto) (1.8-7.7) 10^3/u L Lymph # (Auto) (0.8-4.8) 10^3/u L [place] # (Auto) (0.2-0.9) 10^3/u L Eos # (Auto) (0.0-0.8) 10^3/u L Baso # (Auto) (0.0-0.1) 10^3/u L Nucleated RBC % (a uto) % Nucleated RBCs # /100WBC PT (12.1-14.9) SECO NDS INR (0.8-1.2) D-Dimer (0-0.59) ug/mIFE U Sodium (136-145) mmol/L Potassium (3.5-5.1) mmol/L Chloride (98-107) mmol/L Carbon Dioxide (22-29) mmol/L Anion Gap (5-19) BUN (8-23) mg/dL Creatinine (0.5-0.9) mg/dL GFR Calculation (90-130) mL/min Glucose (65-115) mg/dL Calculated Osmolal ity (285-295) mOsm/k g Calcium (8.5-10.5) mg/dL Total Bilirubin (0.15-1.2) mg/dL AST (0-32) U/L ALT (0-33) U/L Alkaline Phosphata se (35-105) IU/L Troponin T Baselin e 12 H (0-10) ng/L Troponin T 120 Min [place] 11.64 H (0-10) ng/L Delta Troponin T -0.36 L (0-10) ABS# NT-Pro-B Natriuret Pep (0-125) pg/mL Total Protein (6.6-8.7) g/dL Albumin (3.5-5.2) g/dL Globulin (1.3-4.6) g/dL Lipase (13-60) U/L TSH 2.16 (0.27-4.20) uIU/ mL Imaging Data^: CXR: Attestation: I personally reviewed and interpreted this imaging study as follows: Radiologist's impression: [address] [address] XRay Report Signed Patient: Carrie Bowen #: [id number] : 1960Acct#:[id number] Age/Sex: 59 / FADM Date: 05/21/20 Loc: ERRoom/Bed: Attending Dr: Ordering Provider/Ordering MD: [place] Fisher [place] [facility] [place] of Service: 05/21/20 Procedure(s): XR chest 1V portable [id number] Accession Number(s): [id number] Report Number: [id number] WS: [id number] Exam: XR chest 1V portable [id number] Date/Time of Exam: 05/21/2020 4:22 PM Reason For Exam: CP Comparison 05/20/2020. The lungs are clear and fully expanded. No pleural effusions. Normal cardiomediastinal structures and regional bony elements. XR/XR chest 1V portable [id number] IMPRESSION: 1. No acute cardiopulmonary finding. No change. Dictated By:Ellis Real DO Signed By:Sanaz Bellamy Date/Time:05/21/201649 DD/ 49 EKG Data^: EKG 1: Attestation: I personally reviewed and interpreted this EKG as follows: EKG interpretation date: 05/21/20 EKG interpretation time: 15:10 Prior EKG tracings: available for review Interpretation: Sinus tachycardia. Heart rate [address] changes. EKG 2: Attestation: I personally reviewed and interpreted this EKG as follows: EKG interpretation date: 05/21/20 EKG interpretation time: 19:01 Prior EKG tracings: available for review Interpretation: Sinus tachycardia. Heart rate [address] changes. Normal axis. Discharge Plan Discharge Patient Disposition: Admitted As Inpatient Admit Provider: Yoan Nowak Clinical Impression: Chest pain Condition: Stable Coding Level of Care Code ED Data Warehousing Architect for Yuki Arnett
[2020-05-21 22:35] LABS: Troponin 5 6HR 11.13 ng/L (0-10)
[2020-05-21] MEDS: ketorolac 30 mg/mL INJ 15 MG IVP (22:36)
[2020-05-21 22:37] LABS: Troponin 5 6HR Delta -0.87 ng/L (0-12)
[2020-05-21] MEDS: lidocaine 2% viscous 15 ML, aluminum-mag hydrox-simethicon 30 ML, sucralfate oral liq 1 GM PO (22:40)
[2020-05-21] MEDS: enoxaparin 80 mg/0.8 mL Syringe SUBCUT (22:40)
[2020-05-21 22:43] LABS: Estmated Average Glucose 120; Hemoglobin A1C 5.8 % (4.0-6.0)
[2020-05-22] VITALS (11 sets, daily range): BP systolic 107–143; BP diastolic 56–83; PULSE 70–99; RESP 16–96; TEMP 36.4–37.1; O2SAT 17–98
--- NOTE | 2020-05-22 05:59 | USCV_ITS ---
Carrie Bowen Age: 59 Gender: F : 1960 Exam Date: 05/22/2020 08:04 Ordering Phys: Yoan Nowak MD Technologist: Lurdes Ruvalcaba [place] [facility] [place] POSSIBLE NEW ONSET CHF BP: 147 / 78 HR: 94 Rhythm: Sinus Technical Quality: Technically difficult study MEASUREMENTS (Male / Female) Normal Values 2D ECHO LV Diastolic Diameter PLAX 2.9 cm 4.2 - 5.9 / 3.9 - 5.3 cm LV Systolic Diameter PLAX 1.7 cm LV Chamber Size 3.1 cm IVS Diastolic Thickness 0.9 cm 0.6 - 1.0 / 0.6 - 0.9 cm IVS Systolic Thickness 1.1 cm LVPW Diastolic Thickness 1.0 cm 0.6 - 1.0 / 0.6 - 0.9 cm LVPW Systolic Thickness 1.2 cm RV Chamber Size 3.4 cm LVOT Diameter 2.0 cm LV Ejection Fraction 2D Teich 73.2 % LV Ejection Fraction MOD 2C 64.1 % LV Ejection Fraction 2C AL 63.7 % LA Diameter 2.9 cm LA Width 2.6 cm LA Height 3.5 cm RA Width 3.2 cm RA Height 3.1 cm Aorta at Sinotubular Diameter 2.9 cm M-MODE LV Diastolic Diameter MM 3.6 cm 4.2 - 5.9 / 3.9 - 5.3 cm LV Systolic Diameter MM 1.7 cm LV Ejection Fraction MM Teich 84.2 % IVS Diastolic Thickness MM 1.2 cm 0.6 - 1.0 / 0.6 - 0.9 cm IVS Systolic Thickness MM 1.4 cm LVPW Diastolic Thickness MM 0.9 cm 0.6 - 1.0 / 0.6 - 0.9 cm LVPW Systolic Thickness MM 1.1 cm RV Diastolic Diameter MM 0.9 cm Aortic Annulus Diameter 2.8 cm LA Ao Ratio MM 1.3 MV E Point Septal Separation 0.6 cm DOPPLER AV Peak Velocity 179.0 cm/s LVOT Peak Velocity 122.0 cm/s AV Area Cont Eq vti 2.4 cm squared AV Area Cont Eq pk 2.2 cm squared MV Area PHT 5.0 cm squared Mitral E to A Ratio 1.2 MV E' Velocity 61.0 cm/s Mitral E to MV E' Ratio 11.0 Mitral E to LV E' Lateral Ratio 8.4 Mitral E to LV E' Septal Ratio 15.8 TR Peak Velocity 235.7 cm/s TR Peak Gradient 22.2 mmHg TR Mean Velocity 198.1 cm/s TR Mean Gradient 16.3 mmHg TR Velocity Time Integral 59.5 cm TV Peak E Velocity 64.0 cm/s Right Atrial Pressure 3.0 mmHg Pulmonary Artery Systolic Pressu 25.2 mmHg PV Peak Velocity 81.0 cm/s RV Acceleration Time 0.1 s RV Ejection Time 0.3 s RV AcT/ET 0.5 FINDINGS Left Ventricle Normal left ventricular cavity size. Normal left ventricular systolic function. Left ventricular ejection fraction is estimated at 65-70 %. Although no diagnostic regional wall motion abnormality could be identified, this possibility cannot be completely excluded based on the study. Normal diastolic function. Right Ventricle Normal right ventricular size and systolic function, RVSP 25.2 mmHg. Right Atrium Normal right atrial size. Right atrial pressure estimated at 3 mm Hg. Left Atrium Normal left atrial size. Mitral Valve Structurally normal mitral valve. No mitral valve stenosis. No mitral valve regurgitation. Aortic Valve Aortic valve not well visualized. No aortic valve stenosis. No aortic valve regurgitation. Tricuspid Valve Structurally normal tricuspid valve. Pulmonic Valve Pulmonic valve not well visualized. Pericardium No pericardial effusion. Aorta Normal-sized aortic root. Normal-sized inferior vena cava. CONCLUSIONS 1. Normal left ventricular cavity size and systolic function. Left ventricular ejection fraction is estimated at 65-70 %. Although no diagnostic regional wall motion abnormality could be identified, this possibility cannot be completely excluded based on the study. Normal diastolic function. 2. Normal pulmonary artery pressure. 3. No significant valvular abnormality. 4. No prior similar studies to compare. Shantell Peterson MD (Electronically Signed) Final Date: 22 May 2020 15:24 S
[2020-05-22 06:06] LABS: Anion Gap 13.7 (5-19); Blood Urea Nitrogen 16 mg/dL (8-23); Calcium 9.1 mg/dL (8.5-10.5); Carbon Dioxide 30 mmol/L (22-29); Chloride 101 mmol/L (98-107); Glomerular Filtration Rate 73.2 mL/min (90-130); Glucose 130 mg/dL (65-115); Osmolality Calculated 295 mOsm/kg (285-295); Potassium 3.7 mmol/L (3.5-5.1); Sodium 141 mmol/L (136-145)
--- NOTE | 2020-05-22 07:35 | PC.NURSE ---
Patient off unit getting stress test.
[2020-05-22] MEDS: regadenoson 0.4 Mg/5 ml Syringe IVP (07:44)
[2020-05-22] MEDS: atorvastatin 40 mg Tablet 20 MG PO (09:21)
[2020-05-22] MEDS: FUROsemide 20 mg Tablet PO (09:21)
[2020-05-22] MEDS: aspirin 81 mg Chew Tablet PO (09:21)
[2020-05-22] MEDS: lisinopril 20 mg Tablet PO (09:21)
[2020-05-22] MEDS: hydroCHLOROthiazide 25 mg Tablet 12.5 MG PO (09:21)
[2020-05-22] MEDS: pantoprazole DR 40 mg Tablet PO (09:22)
[2020-05-22 09:33] LABS: Erythrocyte Sedimentation Rate 75 mm/hr (0-15)
[2020-05-22] MEDS: nitroglycerin 0.4 mg sublingual Tablet SUBLINGUAL ×3 (09:59→13:24)
--- NOTE | 2020-05-22 10:00 | PC.NURSE ---
Patient reports, I feel like something is sitting on my chest rates pain at 9 on 0-10 pain scale. Administered nitro per doctors orders, see MAR for further details.
--- NOTE | 2020-05-22 10:05 | PC.NURSE ---
pain unrelieved after first dose of nitro, patient flushed in face, reports shortness of breath, administered 2nd dose of nitro, see MAR for further details.
--- NOTE | 2020-05-22 10:13 | PC.NURSE ---
After placement of oxygen at 1L NC oxygen saturation 93%. reports pain subsided to chest 0-10, states I just feel tired.
--- NOTE | 2020-05-22 10:47 | PC.NURSE ---
patient denies pain, denies further shortness of breath, alert and oriented, call light in reach.
--- NOTE | 2020-05-22 13:01 | PC.NURSE ---
oxygen saturation on 1L 96% decreased to 0.5L NC oxygen saturation 93% will continue to monitor.
--- NOTE | 2020-05-22 13:12 | PC.NURSE ---
placed hat in toilet, previous urine has not been measured, instructed on accurate I&O, verbalized understanding.
--- NOTE | 2020-05-22 13:25 | PC.NURSE ---
Patient reports a quick burst of chest pain followed by jaw pain to the left side of jaw Dr. Queen notified and new orders received to give the 3rd dose of nitro. See MAR for further details.
--- NOTE | 2020-05-22 13:47 | PC.CHAP ---
Pastoral Care Encounter/Spiritual Assessment Type of Contact [] Declined r d manager visit [] Patient/Family/Request visit [] Outpatient visit [] Follow-up visit [] Physician referral [] Code/Alert [] Routine visit [] Staff referral [] Actively dying [] Patient sleeping [] Family support [] [] Out of room [] Palliative care [] [] Receiving care in room [] Pre-surgical visit [] Trauma [] Long length of stay [] ICU visit [X] Other: Covid 19 Relational/Emotional Strength [] Patient feels connected with others/family/visitors/staff [] Distress [] Loneliness/isolation [] Abandonment Spirituality of Patient [] Person of Amber [] Attends Yarsani of their Amber [] Believes in Prayer [] Reads Bible or Muslim materials [] There are Spiritual issues to be addressed Public Information Specialist Interventions [] Prayer [] Active listening [] Non-anxious presence [] Spiritual/emotional support [] Crisis/trauma care [] Spiritual counseling [] Bereavement support [] Provided bereavement packet [] Provided Bible/devotional materials [] Provided toy/stuffed animal, coloring book to patient or family member [] Provided Communion [] Anointing/[place] [] Salvation [] Completed spiritual assessment [] Other: Impact on Illness or Injury [] Angry [] Fearful [] Anxious [] Often cries [] Exhaustion [] Unable to work [] Unable to attend mosque [] Unable to walk/stand [] Unable to read [] Unable to drive [] Unable to eat/drink [] Unable to sleep [] Unable to be with family [] Patient intubated [] Other: Summary Covid 19 Time spent with patient 10 mins
--- NOTE | 2020-05-22 17:36 | P.PN_ITS ---
Subjective Subjective: Interval history: She gets very short of breath with exertion. Currently no chest pain or pain between shoulder blades. Took her some time to catch her breath walking back from the restroom. Vitals/I&O/Wt Last Vital Signs Temp 98.7 F 05/22/20 12:00 Pulse 93 05/22/20 15:43 Resp 17 05/22/20 15:37 BP 142/63 05/22/20 12:00 Pulse Ox 94 05/22/20 15:37 05/22/20 05/22/20 05/22/20 06:59 14:59 22:59 Intake Total 240 / 240 Output Total 200 / 200 Balance 240 / 240 -200 / 40 Weight last 48 hrs Weight 82.554 kg Physical Exam Const: COMMON NORMALS: no acute distress, patient oriented x3 and alert GENERAL APPEARANCE: cooperative NUTRITIONAL APPEARANCE: obese ORIENTATION/CONSCIOUSNESS: Yes awake HENMT: COMMON NORMALS: oropharynx normal Neck/C-Spine: COMMON NORMALS: no JVD Resp: COMMON NORMALS: normal respiratory effort and clear to auscultation bilaterally AUSCULTATION: clear to auscultation bilaterally and crackles (Few coarse crackles at bilateral bases.) Cardio: COMMON NORMALS: no JVD, regular rhythm, S1 normal heart sound present, S2 normal heart sound present and No murmurs present (Cardio) RHYTHM: regular rhythm HEART SOUNDS: S1 normal heart sound present and S2 normal heart sound present GI: COMMON NORMALS: Normal to inspection, nondistended, normoactive bowel sounds present, Soft to palpation and non-tender PALPATION: Yes Soft to palpation Extremity: COMMON NORMALS: no joint enlargement and no pedal edema Neuro: COMMON NORMALS: patient oriented x3 and moves all extremities SENSORIUM/ORIENTATION: Yes alert Skin: COMMON NORMALS: no rashes or lesions noted GENERAL SKIN EXAM: no rashes or lesions noted Data : 05/21/20 16:30 05/22/20 05:02 A&P Assessment and plan (1) Dyspnea on exertion: Dyspnea on exertion with atypical chest pain. On presentation also on tachycardia. No PE noted on CTA. Atelectasis bilateral lower lobes. Coarse sounding crackles on exam, although no reported visible parenchymal lung disease on CTA. She does not have wheezing. She reports mild intermittent dry cough she has had for years which she attributes to lisinopril. Says she had previously discussed this with her PCP. Chest discomfort has been new. Radiating to her jaw. Appears to respond to n itroglycerin. At this time it is not clear what is causing her quite severe dyspnea on exertion, even minimal exertion. It is not clear whether this may be pulmonary or cardiac in origin. Differential diagnosis includes possible pneumonitis, infectious like viral (COVID-19 pending), versus possibly chemical as she does report history of longstanding GERD, although this is better recently. She still takes intermittent antacids. States she may have been told previously about a hiatal hernia. She states she tries not to eat before sleep, but occasionally drinks some water. Says sleeps on one pillow. Recently also started using CPAP. Alternatively consideration may be given to pneumonitis or ILD possibly secondary to medications, this may include HCTZ as well as rosuvastatin. Stop these medications. She denies skipping any exotic pets apart from a cat. No eosinophilia noted. Would benefit from PFT after discharge as discussed with her. Consider assessment by pulmonology. Cardiac causes may be contributing with not entirely normal stress test. Recurrent chest pain episodes. ESR is elevated, although does not appear to have suggestion of pericarditis. There is no pericardial effusion. No pericardial rub. Possible subendocardial ischemia. Possible diastolic dysfunction?. Appreciate cardiology assessment. Status: Acute (2) Atypical chest pain: Abnormal TID on stress test. Reported hyperdynamic LV on stress test, however, appears more normal on echo. Poor quality echo, difficult to visualize LVH per discussion with cardiology. No pericardial effusion is noted. Atypical chest pain. Appreciate cardiology assessment of possible subendocardial ischemia. Status: Acute Additional A&P Information GERD: Discussed strategies to reduce chance of reflux and aspiration at night time. Hiatal hernia not reported on CTA. Atelectasis: Incentive spirometry. Obstructive sleep apnea: Auto CPAP DVT prophylaxis Lovenox Clinically euvolemic no signs of fluid overload No proximal muscle weakness noted, will check ESR to rule out PMR Full code Attestations Medical Necessity Statement*: Continue hospitalization for additional assessment by cardiology for atypical chest pain, dyspnea on exertion, abnormal stress test, cardiology consultation. Coding Level of Care Code Acute Fire Pot Operator for [facility] Fwd Exam Comprehensive Diagnoses Dyspnea on exertion R06.00 Atypical chest pain R07.89
--- NOTE | 2020-05-22 18:01 | PM.CONSULT ---
Providers/Reason For Consult Consulting Physican/Specialty*: Dr. Peterson, cardiology Reason for Consult*: Chest pain and shortness of breath Attending Physician: Dheeraj Queen Primary Care Provider: Misty Ruiz MD History of Present Illness History of Present Illness Carrie Bowen is a 59 year old female with past medical history of hypertension, dyslipidemia, sleep apnea on CPAP who presented to the hospital with complaints of chest pain. She has been having worsening ZULUAGA for last few months and for last week she has noticed intermittent episodes of chest pains. Chest pain retrosternal in location and described as elephant sitting on her chest with radiation to left shoulder and neck. She also complains of pain between her shoulder blades on and off. These episodes happen with and without exertion. No nausea, vomiting, URI or UTI like symptoms. She was in ER few days back and was discharged home after negative troponins and plan for stress test. She got COVID PCR that is still pending as outpatient. She went to Dr. Ruiz's office with elevated blood pressure and tachycardia with HR in 130's and was sent back to ER. EKG without any significant ST-T wave chnages and troponin's negative. She underwent stress test that showed mid to apical anterior, apical lateral, apical septal and apical nicholson on supine stress images with LV cavity dilation. TID -1.5. On prone imaging near homogenous tracer uptake. I was asked to evaluate the patient given stress test findings and ongoing CP and ZULUAGA. Review of Systems Const: Denies: fever(s), chills, change in appetite, change in weight, fatigue or malaise Eyes: Denies: change in vision or eye discharge ENMT: Denies: throat pain, swelling of lips/tongue, oral sores, bleeding gums, nasal congestion, epistaxis or post nasal drip Card: Denies: chest pain, palpitations, irregular heart rhythm, edema, lightheadedness, syncope, dyspnea on exertion, orthopnea or leg pain with exertion Resp: Denies: dyspnea, productive cough, wheezing or hemoptysis GI: Denies: abdominal pain, nausea, vomiting, hematemesis, heartburn, diarrhea, constipation, change in bowel habits, hematochezia or melena : Denies: difficulty voiding, dysuria, oliguria, hematuria or sexual dysfunction Musc: Denies: back pain, extremity swelling, joint pain or muscle weakness Skin/Breast: Denies: rash, erythema, new lesions or change in hair Neuro: Denies: numbness in extremities, weakness in extremities, lack of coordination, difficulty walking, dizziness, vertigo or confusion Psych: Denies: anxiety, depression, irritability, suicidal ideation or homicidal ideation Endo: Denies: tired all the time, cold intolerance or heat intolerance Compa/Lymph: Denies: easy bruising, easy bleeding, petechiae or purpura All/Imm: Denies: throat swelling, tongue swelling or acute wheezing Meds/Allergies Home Medications and Allergies Home Medications Medication Instructions Recorded Confirmed Last Taken Type CoQ-10 1 tab PO DAILY 05/20/20 05/21/20 05/20/20 History Multivitamin 50 Plus 1 tab PO DAILY 05/20/20 05/21/20 05/21/20 History Vitamin D3 1 tab PO DAILY 05/20/20 05/21/20 05/20/20 History aspirin 81 mg PO DAILY #30 tab 05/20/20 05/21/20 05/21/20 Rx ferrous sulfate [iron] 325 mg PO DAILY 05/20/20 05/21/20 05/20/20 History lisinopril-hydrochlorothiazide 1 tab PO DAILY 05/20/20 05/21/20 05/21/20 07:00 History magnesium 1 tab PO DAILY 05/20/20 05/21/20 05/19/20 History pramipexole 0.125 mg PO BEDTIME 05/20/20 05/21/20 05/20/20 History rosuvastatin 5 mg PO DAILY 05/20/20 05/21/20 05/20/20 History ibuprofen 400 mg PO PRN 05/21/20 05/21/20 05/21/20 History omeprazole 20 mg PO DAILY 05/21/20 05/21/20 05/21/20 History Allergies Allergy/AdvReac Type Severity Reaction Status Date / Time codeine Allergy ADR-Vomitin Verified 05/21/20 15:49 g propoxyphene [From Darvon] Allergy ALGY-Rash Verified 05/21/20 15:49 Sulfa (Sulfonamide Allergy ALGY-Rash Verified 05/21/20 15:49 Antibiotics) Current Medications Current Medications Generic Name Dose Route Start Last Admin Trade Name Freq PRN Reason Stop Dose Admin Aspirin 81 mg 05/22/20 09:00 05/22/20 09:21 Aspirin 81 Mg Chew Tablet PO 81 mg DAILY LEIGH Administration Atorvastatin Calcium 20 mg 05/22/20 09:00 05/22/20 09:21 Atorvastatin 40 Mg Tablet PO 20 mg DAILY LEIGH Administration Furosemide 20 mg 05/22/20 08:00 05/22/20 09:21 Furosemide 20 Mg Tablet PO 20 mg DAILY@0800 LEIGH Administration Hydrochlorothiazide 12.5 mg 05/22/20 09:00 05/22/20 09:21 Hydrochlorothiazide 25 Mg Tablet PO 12.5 mg DAILY LEIGH Administration Lisinopril 20 mg 05/22/20 09:00 05/22/20 09:21 Lisinopril 20 Mg Tablet PO 20 mg DAILY LEIGH Administration Nitroglycerin 0.4 mg 05/22/20 05:59 05/22/20 13:24 Nitroglycerin 0.4 Mg Sublingual Tablet SUBLINGUAL 05/23/20 05:58 0.4 mg Q5M PRN Administration CHEST PAIN Pantoprazole Sodium 40 mg 05/22/20 09:00 05/22/20 09:[address] 40 Mg Tablet PO 40 mg DAILY LEIGH Administration PFSH Acute PFSH: Medical History Dyslipidemia Hypertension Migraines Restless leg syndrome Sleep apnea Surgical History History of hysterectomy Hx of appendectomy Hx of cholecystectomy Family History Denies family history of CAD (coronary artery disease) Social History Smoking and tobacco status: never smoked Alcohol intake: never Substance/Drug Use: never Household members: spouse Housing: House Vitals/I&O/Wt Last Vital Signs Temp 98.7 F 05/22/20 12:00 Pulse 93 05/22/20 15:43 Resp 17 05/22/20 15:37 BP 142/63 05/22/20 12:00 Pulse Ox 94 05/22/20 15:37 05/22/20 05/22/20 05/22/20 06:59 14:59 22:59 Intake Total 240 / 240 Output Total 200 / 200 Balance 240 / 240 -200 / 40 Weight last 48 hrs Weight 182 lb Physical Exam Narrative: EXAM NARRATIVE: GENERAL: obese lady lying in bed in mild respiratory distress HEENT: Extraocular movement intact. Pupils equal round reactive to light. No pallor or icterus. NECK: central trachea, No JVD, No abdominojugular reflex. No carotid bruit. CARDIOVASCULAR SYSTEM: S1-S2 regular. No S3 or S4 present. No murmur rubs or gallops. RESPIRATORY SYSTEM: Chest clear to auscultation. No wheezes rhonchi or rubs heard. ABDOMEN: Soft, nontender and nondistended. Normal bowel sounds present. EXTREMITIES: No cyanosis or clubbing. No edema. No signs of chronic venous insufficiency. BULLET MAKER: Patient is alert oriented ?3. No focal neurological deficits. SKIN: Normal turgor and temperature. No breakdown, rash or nail changes noted. PSYCH: Normal insight and judgment. No suicidal or homicidal ideations. Data Labs: Other Labs: Baseline troponin T of 12, at 2 hours 11.6 and at 6 hours 11.1. NT proBNP of 376. TSH 2.1. Normal lipase. Rapid SARS Covid 2 antigen pending. ESR elevated at 72. Hemoglobin A1c 5.8 Other Data: Attestation for Other Data: I personally reviewed and interpreted the following: Other data: #Lexiscan sestamibi myocardial perfusion imaging (05/22/20) IMPRESSIONS 1. Normal myocardial perfusion imaging. Breast attenuation artifact noted in mid to apical anterior, apical lateral and apical nicholson. 2. The left ventricular ejection fraction is hyperdynamic with a value of 95%. 3. Transient ischemic dilation index increased at 1.5. This may represent hypertensive response/subendocardial ischemia or multivessel coronary artery disease. Clinical correlation is advised. 4. No prior similar studies to compare. # TTE (05/22/20) CONCLUSIONS 1. Normal left ventricular cavity size and systolic function. Left ventricular ejection fraction is estimated at 65-70 %. Although no diagnostic regional wall motion abnormality could be identified, this possibility cannot be completely excluded based on the study. Normal diastolic function. 2. Normal pulmonary artery pressure. 3. No significant valvular abnormality. 4. No prior similar studies to compare. # CTA chest (05/21/20) FINDINGS: Pulmonary arteries: No filling defects in the pulmonary arteries to suggest pulmonary embolism. Aorta: Mild atherosclerotic changes in the visualized arteries. No evidence for aortic aneurysm or aortic dissection. Lungs: Tracheobronchial structures are patent. Compresses atelectasis in the right and left lower lobes. No pulmonary parenchymal nodules or masses. Pleural space: Small left pleural effusion. Heart: The heart is unremarkable. No cardiomegaly. No pericardial effusion. Mediastinal space: No mediastinal hematoma. No pneumomediastinum. Lymph nodes: No lymphadenopathy. Liver: The visualized liver is unremarkable. Gallbladder and bile ducts: Patient has had a previous cholecystectomy. No biliary ductal dilatation. Pancreas: The visualized pancreas is unremarkable. No pancreatic ductal dilatation. Spleen: The spleen is unremarkable. Adrenals: The right and left adrenal glands are unremarkable. Kidneys and ureters: The visualized right and left kidneys are unremarkable. Bones/joints: Multilevel degenerative changes of varying severity in the visualized spine. Soft tissues: The extrathoracic soft tissues are unremarkable. #Chest x-ray with no acute cardiopulmonary findings. #EKG with sinus tachycardia and nonspecific T wave changes. No significant change on subsequent EKGs. A&P Assessment and plan (1) Chest pain: Concern for unstable angina and given elevated TID on stress test with possible LAD territory ischemia; I will plan for coronary angiogram in morning. -continue ASA, statin and NTG SL PRN -start on low dose metoprolol. -Case was discussed with Dr. David as well. Status: Acute Qualifiers: Chest pain type: other chest pain Qualified Code(s): R07.89 - Other chest pain (2) Hypertension: Status: Inactive (3) Dyslipidemia: Status: Inactive (4) Sleep apnea: Status: Inactive Additional A&P Information Leukocytosis Abnormal liver enzyme Thank you for allowing me to participate in patient's care. Please feel free to call with questions or concerns. Consult Attestations Medical Necessity Statement: needs hospital stay for management of CP and abnormal stress test. Coding Level of Care Code Acute Secondary Connector Armature for Chg Fwd History Comprehensive Exam Comprehensive Medical Decision Making High Complexity Diagnoses Chest pain R07.89 Chest pain type: other chest pain Hypertension I10 Dyslipidemia E78.5 Sleep apnea G47.30 Time Spent (min) 45
[2020-05-22 18:24] LABS: SARS Covid-2 Antigen Negative (Negative)
[2020-05-22] MEDS: pramipexole 0.25 mg Tablet 0.125 MG PO (21:19)
[2020-05-22] MEDS: enoxaparin 80 mg/0.8 mL Syringe SUBCUT (21:43)
--- NOTE | 2020-05-22 22:21 | NMCV_ITS ---
NM fernie perf SPECT r/s* [id number] Carrie Bowen Age: 59 Gender: F : 1960 Exam Date: 05/22/2020 22:21 Ordering Phys: Yoan Nowak MD Technologist: MIKAYLA Pinzon Exam Location: [facility] Indications: HEART PALPITATIONS STRESS TEST Please see separate stress test report in [facility] for full findings IMAGE PROTOCOL Rest/Stress 1 Lexiscan Day Radiopharmaceutical Dose (mCi) Administration Site Administered by Rest: Tc-99m 10.9 IV MIKAYLA Hall Sestamibi Stress:Tc-99m 33.0 IV MIKAYLA Hall Sestamibi Rest: 22-May-2020 60 Discovery 630 Stress: 22-May-2020 30 Discovery 630 0.4mg Lexiscan. Images obtained in supine and prone position. SPECT RESULTS Technical Quality: Good Raw Data Analysis: Breast attenuation Image Corrections: No attenuation or motion correction applied Summed Stress Score: 7 Summed Rest Score: 0 Summed Difference Score: 7 PERFUSION FINDINGS Small size perfusion abnormality of mild severity of mid to apical anterior, apical lateral and apical nicholson on supine stress images with near homogeneous tracer uptake on prone stress images. This is suggestive of breast attenuation artifact. FUNCTIONAL RESULTS (calculated via Gated SPECT) Stress Image LV EF (%): 95 Stress EDV (mL):44 TID: 1.5 Stress ESV (mL):2 FUNCTIONAL FINDINGS: The left ventricle is normal in size. Transient Ischemia Dilatation of 1.5. There is hyperdynamic left ventricular global systolic function. The left ventricular ejection fraction is hyperdynamic with a value of 95%. Left ventricle ejection fraction is likely overestimated due to small left ventricle cavity size. There is hyperdynamic left ventricular wall thickening. IMPRESSIONS 1. Normal myocardial perfusion imaging. Breast attenuation artifact noted in mid to apical anterior, apical lateral and apical nicholson. 2. The left ventricular ejection fraction is hyperdynamic with a value of 95%. 3. Transient ischemic dilation index increased at 1.5. This may represent hypertensive response/subendocardial ischemia or multivessel coronary artery disease. Clinical correlation is advised. 4. No prior similar studies to compare. Shantell Peterson MD (Electronically Signed) Final Date: 22 May 2020 14:03 S
[2020-05-23] VITALS (44 sets, daily range): BP systolic 87–139; BP diastolic 54–79; PULSE 79–91; RESP 12–30; TEMP 36.5–36.9; O2SAT 90–95
[2020-05-23 06:22] LABS: Basophils # 0.1 10^3/uL (0.0-0.1); Basophils % 0.5 %; Eosinophils # 0.2 10^3/uL (0.0-0.8); Eosinophils % 2.2 %; Hematocrit 39.1 % (37.0-47.0); Hemoglobin 12.2 g/dL (11.5-15.3); Lymphocytes # 1.6 10^3/uL (0.8-4.8); Lymphocytes % 15.5 %; Mean Corpuscular HGB Conc 31.2 g/dL (30.0-36.0); Mean Corpuscular Hemoglobin 29.5 pg (28.0-34.0); Mean Corpuscular Volume 94.4 fL (81-99); Mean Platelet Volume 12.3 fL (7.4-10.4); Monocytes # 1.2 10^3/uL (0.2-0.9); Monocytes % 11.7 %; Neutrophils # 6.99 10^3/uL (1.8-7.7); Neutrophils % 69.6 %; Nucleated Red Blood Cells % 0 %; Platelet Count 163 10^3/cmm (130-400); Red Blood Count 4.14 10^6/uL (4.1-5.3)
[2020-05-23 06:36] LABS: Alanine Aminotransferase 48 U/L (0-33); Albumin Level 3.6 g/dL (3.5-5.2); Alkaline Phosphatase 135 IU/L (35-105); Anion Gap 9.9 (5-19); Aspartate Amino Transferase 31 U/L (0-32); Blood Urea Nitrogen 16 mg/dL (8-23); Calcium 9.1 mg/dL (8.5-10.5); Carbon Dioxide 31 mmol/L (22-29); Chloride 102 mmol/L (98-107); Globulin 3.2 g/dL (1.3-4.6); Glomerular Filtration Rate 63.9 mL/min (90-130); Glucose 157 mg/dL (65-115); Osmolality Calculated 292 mOsm/kg (285-295); Potassium 3.9 mmol/L (3.5-5.1); Sodium 139 mmol/L (136-145); Total Bilirubin 0.6 mg/dL (0.15-1.2); Total Protein 6.8 g/dL (6.6-8.7)
[2020-05-23] MEDS: FUROsemide 20 mg Tablet PO (08:51)
[2020-05-23] MEDS: pantoprazole DR 40 mg Tablet PO (08:51)
[2020-05-23] MEDS: atorvastatin 40 mg Tablet PO (08:51)
--- NOTE | 2020-05-23 08:52 | PC.NURSE ---
Aspirin held for cardiac cath scheduled today, Dr. Queen aware and in agreement.
[2020-05-23] MEDS: sodium chloride 0.9% 1,000 ML 50 ML IV (09:07)
--- NOTE | 2020-05-23 10:07 | PM.PN ---
Subjective Subjective: Interval history: She states she is doing all right. Little bit better. No chest pain currently. Has been working with incentive spirometry. Vitals/I&O/Wt Last Vital Signs Temp 98.5 F 05/23/20 08:00 Pulse 87 05/23/20 08:54 Resp 16 05/23/20 08:54 BP 113/72 05/23/20 08:00 Pulse Ox 94 05/23/20 08:54 05/22/20 05/23/20 05/23/20 22:59 06:59 14:59 Intake Total 240 / 480 Output Total 200 / 200 Balance 40 / 280 Weight last 48 hrs Weight 82.554 kg Physical Exam Const: COMMON NORMALS: no acute distress, patient oriented x3 and alert GENERAL APPEARANCE: cooperative NUTRITIONAL APPEARANCE: obese ORIENTATION/CONSCIOUSNESS: Yes awake HENMT: COMMON NORMALS: oropharynx normal Neck/C-Spine: COMMON NORMALS: no JVD Resp: COMMON NORMALS: normal respiratory effort and clear to auscultation bilaterally AUSCULTATION: clear to auscultation bilaterally and crackles (Few coarse crackles at bilateral bases.) Cardio: COMMON NORMALS: no JVD, regular rhythm, S1 normal heart sound present, S2 normal heart sound present and No murmurs present (Cardio) RHYTHM: regular rhythm HEART SOUNDS: S1 normal heart sound present and S2 normal heart sound present GI: COMMON NORMALS: Normal to inspection, nondistended, normoactive bowel sounds present, Soft to palpation and non-tender PALPATION: Yes Soft to palpation Extremity: COMMON NORMALS: no joint enlargement and no pedal edema Neuro: COMMON NORMALS: patient oriented x3 and moves all extremities SENSORIUM/ORIENTATION: Yes alert Skin: COMMON NORMALS: no rashes or lesions noted GENERAL SKIN EXAM: no rashes or lesions noted Data : 05/23/20 05:37 05/23/20 05:37 A&P Assessment and plan (1) Dyspnea on exertion: Today planned assessment with coronary angiography due to concern for significant coronary disease causing ischemia. Discussed with her also regarding referral for pulmonary function testing, and to discuss the results with her primary care provider, consider referral to pulmonology. She is agreeable with this plan. We discussed strategies to reduce GERD including avoidance of food or drink for at least several hours before sleep, elevation of head of bed. She will continue PPI. We also discussed changes to medications including discontinuation of HCTZ, change of lisinopril to ARB given she reports some chronic intermittent cough. Also change of rosuvastatin which in rare instances can cause ILD. She reports in the past was not tolerating atorvastatin well. Perhaps could hold off on statin for about 2 weeks, and then attempt reinitiate perhaps different statin, althouth potentiall all may have an association. Would likely proceed depending on PFT findings, perhaps in consultation with pulmonology. Follow-up COVID-19 PCR testing. Rapid test -05/22. Continue incentive spirometry for atelectasis. Dyspnea on exertion with atypical chest pain. On presentation also on tachycardia. At this time it is not clear what is causing her quite severe dyspnea on exertion, even minimal exertion. It is not clear whether this may be pulmonary or cardiac in origin. Differential diagnosis includes possible pneumonitis, infectious like viral (COVID-19 pending), versus possibly chemical as she does report history of longstanding GERD, although this is better recently. She still takes intermittent antacids. States she may have been told previously about a hiatal hernia. She states she tries not to eat before sleep, but occasionally drinks some water. Says sleeps on one pillow. Recently also started using CPAP. Alternatively consideration may be given to pneumonitis or ILD possibly secondary to medications, this may include HCTZ as well as rosuvastatin. Stop these medications. She denies skipping any exotic pets apart from a cat. No eosinophilia noted. Would benefit from PFT after discharge as discussed with her. Consider assessment by pulmonology. Cardiac causes may be contributing with not entirely normal stress test. Recurrent chest pain episodes. ESR is elevated, although does not appear to have suggestion of pericarditis. There is no pericardial effusion. No pericardial rub. Status: Acute (2) Atypical chest pain: Additional assessment planned for today by cardiology with coronary angiography to exclude myocardial ischemia given her symptoms and abnormal stress test. Status: Acute Additional A&P Information GERD: Discussed strategies to reduce chance of reflux and aspiration at night time. Hiatal hernia not reported on CTA. Atelectasis: Incentive spirometry. Obstructive sleep apnea: Auto CPAP DVT prophylaxis Lovenox Full code Attestations Medical Necessity Statement*: Continue hospitalization for assessment and management of dyspnea on exertion, atypical chest pain, possible cardiac ischemia. Coding Level of Care Code Acute Supervisor Esters And Emulsifiers for Chg Fwd Exam Comprehensive Diagnoses Dyspnea on exertion R06.00 Atypical chest pain R07.89
[2020-05-23] MEDS: diphenhydrAMINE 50 mg Capsule PO (11:41)
--- NOTE | 2020-05-23 12:00 | XACV_ITS ---
Exam Room: [facility] Ht: 160 cm Wt: 83 kg BSA: 1.95 m2 Gender: Female : 1960 Any Known Allergies: Other Exam Priority: Routine Procedure(s): Procedure Description: Diagnostic procedure Procedure Description: Coronary Angiography Diagnostic Cath Status: Urgent Diagnostic Findings * No significant disease noted in the Left Main, LAD, Circumflex, or RCA coronary arteries. * Coronary angiography shows right dominance. Conclusions 1. No significant disease noted in the Left Main, LAD, Circumflex, or RCA coronary arteries. 2. Indication for Manager Occupational: 3. Recurrent chest pain with unstable angina like picture. Recommendations * Continue current medical management and risk factor modification. Diagnostic RX Recommendation: medical therapy and/or counseling Pressures Phase:Rest AO : 137 / 64 ( 86 ) @ 10:50:00 AM 105 / 64 ( 83 ) @ 10:55:00 AM 149 / 80 ( 107 ) @ 10:58:00 AM Clinical Evaluation EBL: 5mL-10mL Procedural Details Procedure Consent Obtained. Pre-Procedure Time Out. Identified patient by full name and date of as verbalized by the patient/guarantor. Does the consent match the physician's order: Yes. Accurate & Complete Informed Consent: Yes. Inpatient/Outpatient History & Physical on Chart: Yes. If H&P is completed, is and addenduem needed: No; If yes, is the addendum complete: N/A. Visualize and Verify Site with Patient/Guarantor: N/A. Relevant Radiology Images available: N/A. Pre-op teaching completed and patient verbalized understanding. The risks, benefits, and alternatives of sedation and/or procedure were discussed by physician. The patient agrees to continue. Procedure started. [facility] Clinical Fraility Score: 3: Managing Well. Manager Occupational Indications: Worsening Angina. Chest Pain Symptom Assessment: Atypical Angina. Cardiovascular Instability: No. Correct patient, site and procedure confirmed by cath team. PERRLA. Strong, equal hand process improvement manager bilaterally. Lungs clear x 5 lobes. IV Site on Arrival: 18 gauge in the left anticubital. IV Fluids: 0.9% NaCl at KVO. 0 mL infused prior to physical laboratory assistant. Pre Procedural Pulses: bilateral dorsalis pedis was Doppled. Pre Procedural Pulses: bilateral posterior tibial was Doppled. Oxygen started at 2liters/min via nasal canula. bilateral groins was prepped with chloroprep then draped in the usual sterile fashion. right radial was prepped with chloroprep then draped in the usual sterile fashion. Baseline sample Acquired. HR: 99 BPM. Physician notified. Equipment: 6F - Radial. Cardiac Cath Pack. ACIST Manifold Kit Model BT 2000. Heparinized Saline (2 units/mL), 1000 mL bag. Physician arrived. Physician scrubbed in. Immediate Pre-Procedure Time Out. Correct Patient: Yes; Correct Procedure: Yes; Correct Site: Yes; Correct Patient Position: Yes; Correct Supplies: Yes; Dried Flammable Prep: Yes; Blood Products Available: N/A;. Lidocaine 1% infiltrated to the right radial. Arterial access obtained. A 5 finnish TIG catheter in over wire. Exchange wire out. Glidewire inserted. Multiple views taken of left coronary artery. Catheter redirected to the RCA. A CRD 5F JR4 Diagnostic Catheter was advanced over the wire and used for Right coronary angiography. Catheter out. Physician scrubbed out. A TR Band was successful obtaining hemostatsis at the Right Radial artery insertion site. TR band placed. Hemostasis obtained. Post Procedure: Pulses reassessed and unchanged. PERRLA. Strong, equal hand process improvement manager bilaterally. No VTE prophylaxis required. Medication's Wasted: Lidocaine 1% = 18 mL. Medication's Wasted: Nitro = 49.8 mg. Medication's Wasted: Heparin = 1000 units. Total IV fluids: 50 mL. Contrast type used: Omnipaque 300 mgI/mL, 500 mL bottle. Complications: none. Estimated blood loss: 5mL-10mL. Post-op diagnosis: non obstructive CAD. Procedure completed. Patient transferred by wheelchair to 1st floor. Vital chart was stopped. Access Site Site: Right Radial artery Sheath Size: 6 Fr Hemostasis Method: TR Band Hemostasis Success: Successful Procedure Medications Start: 4:40 PM Stop: 4:40 PM Medication: Fentanyl Amount: 50 mcg Route: I.V. Start: 4:41 PM Stop: 4:41 PM Medication: Versed Amount: 1 mg Route: I.V. Start: 4:47 PM Stop: 4:47 PM Medication: Nitrogylcerin Amount: 200 mcg Route: I.A. Start: 4:48 PM Stop: 4:48 PM Medication: Versed Amount: 1 mg Route: I.V. Start: 4:58 PM Stop: 4:58 PM Medication: Fentanyl Amount: 25 mcg Route: I.V. Start: 4:59 PM Stop: 4:59 PM Medication: Heparin Amount: 5000 units Route: I.V. I, the attending physician, have reviewed and verified all procedure medications. Yes, all medications given per verbal order History/Risk Factors Hypertension: Yes Dyslipidemia: Yes Peripheral Arterial Disease (PAD): No Myocardial Infarction (FL): No Obesity: No Renal Disease: No Tobacco Use: Never Prior Interventions PCI: No CABG: No Valve Surgery: No Report Signatures Finalized by Yoan David MD on 06/04/2020 04:31 PM
--- NOTE | 2020-05-23 16:37 | PC.NURSE ---
Patient taken to woods laborer via wheelchair, no distress noted.
--- NOTE | 2020-05-23 17:02 | PC.NURSE ---
patient belongings taken to [facility] room 111-1, including cell phone surfacer, cpap, clothes, shoes, jacket.
--- NOTE | 2020-05-23 17:03 | PC.NURSE ---
attempted to call report on patient to [facility], staff busy will call back when available.
[2020-05-23] MEDS: pramipexole 0.25 mg Tablet 0.125 MG PO (20:32)
[2020-05-24] VITALS (26 sets, daily range): BP systolic 108–150; BP diastolic 61–85; PULSE 79–91; RESP 17–28; TEMP 36–37.3; O2SAT 90–98
--- NOTE | 2020-05-24 00:23 | PC.NURSE ---
PT IS RESTING IN BED. PT HAS A TR BAND ON RIGHT WRIST. PULSE IS PALPABLE DISTAL OF TR BAND. SERVER SOFTWARE ENGINEER NURSE REMOVED AIR PER PROTOCOL. PT DENIES PAIN. WILL CONTINUE TO MONITOR.
[2020-05-24] MEDS: sodium chloride 0.9% 1,000 ML 100 ML IV (01:01)
--- NOTE | 2020-05-24 01:15 | PC.NURSE ---
RADIOLOGY PHYSICIAN ASSISTANT NURSE REMOVED TR BAND AND APPLIED PRESSURE DRESSING. WILL CONTINUE TO MONITOR.
[2020-05-24 03:40] LABS: Basophils # 0.1 10^3/uL (0.0-0.1); Basophils % 0.6 %; Eosinophils # 0.4 10^3/uL (0.0-0.8); Eosinophils % 4.8 %; Hematocrit 35.6 % (37.0-47.0); Hemoglobin 11.1 g/dL (11.5-15.3); Lymphocytes # 1.4 10^3/uL (0.8-4.8); Lymphocytes % 16.7 %; Mean Corpuscular HGB Conc 31.2 g/dL (30.0-36.0); Mean Corpuscular Hemoglobin 29.4 pg (28.0-34.0); Mean Corpuscular Volume 94.2 fL (81-99); Monocytes % 11.5 %; Neutrophils # 5.67 10^3/uL (1.8-7.7); Neutrophils % 65.8 %; Nucleated Red Blood Cells % 0 %; Platelet Count 192 10^3/cmm (130-400); Red Blood Count 3.78 10^6/uL (4.1-5.3); Red Cell Distribution Width 12.9 % (12.1-15.1); White Blood Count 8.6 10^3/uL (4.0-10.0)
[2020-05-24 04:12] LABS: Alanine Aminotransferase 40 U/L (0-33); Albumin Level 3.2 g/dL (3.5-5.2); Alkaline Phosphatase 145 IU/L (35-105); Aspartate Amino Transferase 28 U/L (0-32); Blood Urea Nitrogen 17 mg/dL (8-23); Calcium 8.9 mg/dL (8.5-10.5); Carbon Dioxide 25 mmol/L (22-29); Chloride 104 mmol/L (98-107); Globulin 3.2 g/dL (1.3-4.6); Glomerular Filtration Rate 85.4 mL/min (90-130); Glucose 139 mg/dL (65-115); Osmolality Calculated 290 mOsm/kg (285-295); Sodium 138 mmol/L (136-145); Total Bilirubin 0.5 mg/dL (0.15-1.2); Total Protein 6.4 g/dL (6.6-8.7)
[2020-05-24 04:20] LABS: Anion Gap 13.8 (5-19); Potassium 4.8 mmol/L (3.5-5.1)
--- NOTE | 2020-05-24 05:43 | PC.NURSE ---
PT RESTING IN BED. PT IN PLEASANT MOOD. PRESSURE DRESSING TO RIGHT WRIST C/D/I. PT DENIES PAIN. WILL CONTINUE TO MONITOR.
[2020-05-24] MEDS: aspirin 81 mg Chew Tablet 324 MG PO (08:08)
[2020-05-24] MEDS: atorvastatin 40 mg Tablet PO (08:09)
[2020-05-24] MEDS: pantoprazole DR 40 mg Tablet PO (08:10)
--- NOTE | 2020-05-24 10:00 | XRR_ITS ---
PROCEDURE INFORMATION: Exam: XR Left Shoulder Exam date and time: 05/24/2020 11:52 AM Age: 59 years old Clinical indication: Pain; Shoulder; Left; Additional info: Ache TECHNIQUE: Imaging protocol: XR Left shoulder. Views: 2 or more views. COMPARISON: No relevant prior studies available. FINDINGS: Bones/joints: Normal. Soft tissues: Normal. XR/XR shoulder LT min 2V* [id number] IMPRESSION: No acute findings.
--- NOTE | 2020-05-24 11:09 | P.PN_ITS ---
Subjective Subjective: Interval history: Patient is doing well. She denies any complaints of chest pain, shortness of breath or palpitations. She underwent cardiac catheterization yesterday which showed no obstructive coronary artery disease Vitals/I&O/Wt Last Vital Signs Temp 96.8 F L 05/24/20 08:00 Pulse 87 05/24/20 08:00 Resp 24 H 05/24/20 08:00 BP 141/75 05/24/20 08:00 Pulse Ox 98 05/24/20 08:00 05/23/20 05/24/20 05/24/20 22:59 06:59 14:59 Intake Total 540 / 540 360 / 360 Output Total 100 / 400 Balance 440 / 140 360 / 360 Physical Exam Narrative: EXAM NARRATIVE: GENERAL: obese lady lying in bed in mild respiratory distress HEENT: Extraocular movement intact. Pupils equal round reactive to light. No pallor or icterus. NECK: central trachea, No JVD, No abdominojugular reflex. No carotid bruit. CARDIOVASCULAR SYSTEM: S1-S2 regular. No S3 or S4 present. No murmur rubs or gallops. RESPIRATORY SYSTEM: Chest clear to auscultation. No wheezes rhonchi or rubs heard. ABDOMEN: Soft, nontender and nondistended. Normal bowel sounds present. EXTREMITIES: No cyanosis or clubbing. No edema. No signs of chronic venous insufficiency. PETROLEUM SUPPLY SPECIALIST: Patient is alert oriented ?3. No focal neurological deficits. SKIN: Normal turgor and temperature. No breakdown, rash or nail changes noted. PSYCH: Normal insight and judgment. No suicidal or homicidal ideations. Data : 05/24/20 03:09 05/24/20 03:09 A&P Assessment and plan (1) Chest pain: Concern for unstable angina and given elevated TID on stress test with possible LAD territory ischemia Patient underwent coronary angiography yesterday which showed no obstructive coronary artery disease. Patient is ready to be discharged home today, continue aspirin and losartan. Liver enzymes were elevated during the hospitalization and primary team has held the statin for now. Can be addressed as outpatient. Status: Resolved Qualifiers: Chest pain type: other chest pain Qualified Code(s): R07.89 - Other chest pain (2) Hypertension: Status: Inactive (3) Dyslipidemia: Status: Inactive (4) Sleep apnea: Status: Inactive Additional A&P Information Leukocytosis Abnormal liver enzyme Thank you for allowing me to participate in patient's care. Please feel free to call with questions or concerns. Attestations Medical Necessity Statement*: Care expected to cross 2 midnights Coding Level of Care Code Acute Straight Edger for Yuki Bravod Diagnoses Chest pain R07.89 Chest pain type: other chest pain Hypertension I10 Dyslipidemia E78.5 Sleep apnea G47.30
--- NOTE | 2020-05-24 11:29 | PC.NURSE ---
Discharge instructions given per the physician's orders. Patient verbalized understanding of teaching and did not have any further questions. Nurse to continue to monitor.
--- NOTE | 2020-05-24 20:53 | P.DS_ITS ---
Discharge Providers Date of Admission: 05/21/20 21:03 Date of Discharge: May 24, 2020 Attending Provider at Admission: Yoan Nowak MD Attending Provider at Discharge: Dheeraj Queen Primary Care Provider: Misty Ruiz MD Diagnoses at Discharge Discharge Diagnosis (1) Dyspnea on exertion: Status: Acute (2) Atypical chest pain: Status: Acute (3) Elevated erythrocyte sedimentation rate: Status: Acute (4) GERD (gastroesophageal reflux disease): Status: Acute (5) NETO (obstructive sleep apnea): Status: Acute Reason for Visit Reason for Visit: HEART PALPITATIONS, HTN, SOB Hospital Course Hospital Course Very pleasant 59-year-old lady with history of HTN, HLD, RLS, sleep apnea, recently started on CPAP, GERD, she reported also hiatal hernia, although this was not seen on CT during current hospitalization, never smoker, was admitted due to significant dyspnea on exertion, atypical chest pain in bilateral shoulders, noted tachycardia on presentation, pressure in her chest, radiating to the jaw. She was tested for coronavirus at work day prior to admission, although test has not come back yet. Chest x-ray on presentation without acute findings. D-dimer mildly elevated at 0.7, CT angiogram obtained due to symptoms to exclude PE, which was not seen. Noted compression plexus bilateral lower lobes. Small left pleural effusion. She has done well with using incentive spirometry through the hospitalization with improvement in atelectasis. Due to symptoms stress test was obtained which showed transient dilation index increased, possibly hyperdynamic left ventricular function. Echocardiogram was obtained, but showed normal ejection fraction. With quite significant dyspnea exertion, as well as atypical chest pain symptoms, risk factors for coronary disease, with concern for underlying ischemia she was assessed by coronary geography which did not find significant coronary artery disease. Alternative causes for her significant dyspnea were considered as well. She does have quite long history of GERD, and does report that was told previously about hiatal hernia, although this was not visualized on CTA. We did discuss strategies to minimize reflux disease which may lead to interstitial lung disease or asthma- like symptoms, and she will continue to attempt to minimize fluid intake before sleep, elevate head of bed, minimize foods that may trigger GERD. We also discussed about a number of medications that she is taking which may contribute to interstitial lung disease. She does report chronic cough for at least a year, and attributes it to lisinopril. Discussed with her that HCTZ which is in combination with lisinopril and her medications may cause ILD, as can lisinopril. In addition losartan may serve similar function, and not give side effect of chronic cough. Per discussion with her at this time she is agreeable to switch to losartan, discontinue lisinopril and HCTZ. Discussed also rosuvastatin may lead to ILD, but also myopathy, even in the setting of normal CK. This medication is discontinued at this time. Please hold off as discussed with her for at least several weeks, and consideration then may be given to initiation of a different statin. She previously already tried atorvastatin and did not tolerate that medication due to muscle cramping. Her symptoms may in fact be secondary to myopathy as she did improve in the hospital while off rosuvastatin, although at the same time did receive different statin. Her TSH was normal. She is referred for pulmonary function testing. Please follow-up results, and consider referral to pulmonology depending on findings and her condition. On examination she is also found to have some mild pain on passive range of motion of the left shoulder. X-ray of the left shoulder showed no acute findings. She has no swelling, no erythema, no superficial tenderness at shoulder palpation. She has been afebrile. She has had no symptoms of sepsis, and there is no suspicion of joint infection at this time, however, please reassess. In addition, her ESR was found to be elevated at 75, and etiology of this is not entirely clear. If no other causes can be found for her symptoms, possibly PMR or inflammatory myopathy may be considered as well as cause of her symptoms. All of this has been discussed with her. She is aware to follow-up with PCP or go to ER in case of any worsening or any other concerning significant symptoms. Please also reassess mildly elevated ALT and alkaline phosphatase. 40 and 145 respectively. Please follow-up final results of COVID-19 PCR testing done prior to the admission. Physical Exam Const: COMMON NORMALS: no acute distress, patient oriented x3 and alert GENERAL APPEARANCE: cooperative NUTRITIONAL APPEARANCE: obese ORIENTATION/CONSCIOUSNESS: Yes awake HENMT: COMMON NORMALS: oropharynx normal Neck/C-Spine: COMMON NORMALS: no JVD Resp: COMMON NORMALS: normal respiratory effort and clear to auscultation bilaterally AUSCULTATION: clear to auscultation bilaterally and crackles (Few coarse crackles at bilateral bases.) Cardio: COMMON NORMALS: no JVD, regular rhythm, S1 normal heart sound present, S2 normal heart sound present and No murmurs present (Cardio) RHYTHM: regular rhythm HEART SOUNDS: S1 normal heart sound present and S2 normal heart sound present GI: COMMON NORMALS: Normal to inspection, nondistended, normoactive bowel sounds present, Soft to palpation and non-tender PALPATION: Yes Soft to palpation Extremity: COMMON NORMALS: no joint enlargement and no pedal edema OTHER: Mild left shoulder pain on passive flexion, horizontal adduction. Neuro: COMMON NORMALS: patient oriented x3 and moves all extremities SENSORIUM/ORIENTATION: Yes alert Skin: COMMON NORMALS: no rashes or lesions noted GENERAL SKIN EXAM: no rashes or lesions noted Discharge Data Data Completed and Pending: Completed Studies During Hospitalization Category Date Time Status CT angio chest PE protcl [id number] Urge nt Cat Scan 05/21/20 21:04 Completed Sestamibi Stress Test Request Routi ne Exams 05/21/20 22:21 Completed XR chest 1V chasity ble [id number] Stat Exams 05/21/20 16:19 Completed XR shoulder LT mi n 2V* [id number] Routin e Exams 05/24/20 10:00 Completed NM fernie perf SPECT r/s* [id number] Routin e Nuc Med 05/22/20 22:21 Completed CV echo complete* [id number] Routine Ultrasound 05/22/20 05:59 Completed Pending at discharge Category Date Time Status [facility] SPECIALIST request for service Routin e Exams 05/23/20 12:00 Ordered Labs from last 24 hours 05/24/20 05/24/20 03:09 03:09 WBC 8.6 RBC 3.78 L Hgb 11.1 L Hct 35.6 L MCV 94.2 MCH 29.4 MCHC 31.2 RDW 12.9 Plt Count 192 MPV 12.0 H Neut % (Auto) 65.8 Lymph % (Auto) 16.7 [place] % (Auto) 11.5 Eos % (Auto) 4.8 Baso % (Auto) 0.6 Neut # (Auto) 5.67 Lymph # (Auto) 1.4 [place] # (Auto) 1.0 H Eos # (Auto) 0.4 Baso # (Auto) 0.1 Nucleated RBC % (a uto) 0 Nucleated RBCs # 0.0 Sodium 138 Potassium 4.8 Chloride 104 Carbon Dioxide 25 Anion Gap 13.8 BUN 17 Creatinine 0.7 GFR Calculation 85.4 L Glucose 139 H Calculated Osmolal ity 290 Calcium 8.9 Total Bilirubin 0.5 AST 28 ALT 40 H Alkaline Phosphata se 145 H Total Protein 6.4 L Albumin 3.2 L Globulin 3.2 Vitals: Last Vital Signs Temp 99.1 F 05/24/20 12:00 Pulse 91 05/24/20 12:00 Resp 20 H 05/24/20 12:00 BP 150/85 05/24/20 12:00 Pulse Ox 96 05/24/20 12:00 Discharge Plan Discharge Patient Disposition: Home Condition: Stable Prescriptions: New Ventolin HFA 90 mcg/actuation Hfa Aerosol Inhaler 2 puff inhalation Q4H.RESPIRATORY PRN (Reason: Shortness Of Breath) Qty: 8.5 RF: 0 losartan 25 mg tablet 25 mg PO DAILY Qty: 30 RF: 0 Continued omeprazole 20 mg Capsule,Delayed Release(Dr/Ec) 20 mg PO DAILY RF: 0 ferrous sulfate [iron] 325 mg (65 mg iron) tablet 325 mg PO DAILY RF: 0 pramipexole 0.125 mg tablet 0.125 mg PO BEDTIME RF: 0 CoQ-10 1 tab PO DAILY RF: 0 Multivitamin 50 Plus 1 tab PO DAILY RF: 0 Vitamin D3 1 tab PO DAILY RF: 0 magnesium 1 tab PO DAILY RF: 0 aspirin 81 mg tablet,chewable 81 mg PO DAILY Qty: 30 RF: 0 Discontinued ibuprofen 200 mg Tablet 400 mg PO PRN RF: 0 lisinopril-hydrochlorothiazide 20-12.5 mg tablet 1 tab PO DAILY RF: 0 rosuvastatin 5 mg tablet 5 mg PO DAILY RF: 0 Discharge Orders: Discharge Order (Routine); Ordered 05/24/20 Ordered By: Dheeraj Queen Other Ambulatory Orders: Pulmonary Function Screen with Bronchodilator (Routine) Timeframe: 1 Week Facility: [facility] - Location: Respiratory Therapy Ordered By: Dheeraj Queen Referrals: Misty Ruiz MD [Primary Care Provider] - 4-7 days ([facility] will be calling to set up a hospital followup with Dr. Ruiz to be seen in approx. 4 to 7 days. If you don't hear from them by Tuesday, please give them a call. Thank you) Shakira Fry FNP [Nurse Practitioner] - 7-10 days ([facility] will be calling to set up a post procedure followup with ELLIOTT Sotelo to be scheduled in apporox 7 to 10 days. If you don't hear from them by Tuesday, please gie them a call. Thank you) Shantell Peterson MD [Physician] - 1 month ([facility] will be calling to set up a cardiology followup with Dr. Peterson to be seen in 1 month. If you don't hear from them by Tuesday, please give them a call. Thank you) Discharge Diet: Cardiac Discharge Activity: Increase activity as tolerated Patient Instructions: Albuterol (By breathing), Losartan (By mouth), Left Heart Catheterization (DC), Gastroesophageal Reflux Disease (DC), Chronic Cough (GEN), Post Angiogram Home Care Instructions Activity Restrictions/Additional Instructions: Please discuss with your primary care provider regarding results of shoulder x- ray, as well as results of pulmonary function testing. Centralized Scheduling will be calling to schedule that test. If you haven't heard from them by Tuesday, please give them a call at [phone]. Please continue incentive spirometry for atelectasis. Discussed also regarding elevated inflammatory marker and have it rechecked. Please continue strategies as we had discussed to reduce reflux at night, including no food or drink for several hours prior to sleep, elevate head of bed for sleep. Avoid foods that may trigger reflux. Number of your medications are changed, including discontinued HCTZ and lisinopril, you are started on valsartan instead, please hold rosuvastatin for the next several weeks as well, and discuss with your primary care doctor consideration of starting a different statin. These medications are discontinued as in some rare cases they may cause interstitial lung disease. Statin can also cause myopathy which may manifest as muscle aches and pains, fatigue, liver parameter elevation, etc. Please have your primary care physician follow-up incidentally noted minimal elevation of ALT, mild elevation of alkaline phosphatase (145). In case of any severe chest pain, severe shortness of breath, high fevers, or other concerning symptoms, please seek medical attention immediately. Discharge Attestations Time Spent in Discharge Care*: greater than 30 min Quality Metrics Clinical Quality Measures During this hospital stay, did patient experience: None Coding Level of Care Code Acute Orthopedic Podiatrist for Chg Fwd Diagnoses Dyspnea on exertion R06.00 Atypical chest pain R07.89 Elevated erythrocyte sedimentation rate R70.0 GERD (gastroesophageal reflux disease) K21.9 NETO (obstructive sleep apnea) G47.33
--- NOTE | 2020-06-11 19:55 | W.PM.OPSUD ---
Surgery/Procedure H&P Update DATE OF PROCEDURE: June 11, 2020 DATE H&P PERFORMED: 05/22/20 H&P UPDATE INFORMATION: I have reviewed H&P completed within last 30 days, I have examined patient prior to procedure and No changes to prior documentation PREOP DIAGNOSIS: Chest pain, abnormal stress test PLANNED PROCEDURE: Operation Date: 05/23/20 13:00 Proposed Procedures p Cardiac Catheterization(Not Applicable) - Yoan David MD PATIENT REASSESSED PRIOR TO SEDATION, WITH NO CHANGE NOTED: Yes PHYSICAL EXAM: alert, oriented x 3, clear to auscultation bilaterally and regular rate & rhythm AIRWAY EVAL/ANESTHESIA PLAN: ASA II, Risks, benefits & alternatives of sedation and/or procedure discussed and Patient agrees to continue as planned
== END 2020-05-24 12:30 | disposition home or self-care (01) ==
LOC: ER 15:17 → MEDSURG 21:24 → CSU 05-23 17:24
PROVIDERS: Internal Medicine Cardiovascular Disease; Admitting Provider Internal Medicine; Emergency Provider Family Medicine; PCP Internal Medicine; Visit Provider Internal Medicine
DX: R06.00 Dyspnea, unspecified (principal); R07.89 Other chest pain; I10 Essential (primary) hypertension; E78.5 Hyperlipidemia, unspecified; G47.33 Obstructive sleep apnea (adult) (pediatric); Z82.49 Family history of ischemic heart disease and other diseases of the circulatory system; Z79.82 Long term (current) use of aspirin; K21.9 Gastro-esophageal reflux disease without esophagitis
CPT/HCPCS: 12345; 36415; 71045; 71275; 73030; 78452; 80048; 80053; 83036; 83690; 83880; 84443; 84484; 85025; 85378; 85610; 85651; 87426; 93005; 93017; 93306; 93454; 96372; 96374; 96375; 99283; 99285; A9500; C1769; C1887; C1894; G0378; J1644; J1650; J1885; J2250; J2405; J2785; J3010; J3490; J7030; Q0163; Q9967

== ENCOUNTER → 2020-05-31 11:53 | Outpatient (BNVA) | payer OTHER, SELFPAY | PROVIDERS: PCP Internal Medicine; Visit Provider Internal Medicine | DX: Z01.812 Encounter for preprocedural laboratory examination (principal); Z20.828 Contact with and (suspected) exposure to other viral communicable diseases | CPT/HCPCS: 87635 ==

== ENCOUNTER 2020-06-03 11:28 | Outpatient (CLI) | payer OTHER, SELFPAY ==
--- NOTE | 2020-06-03 11:40 | XRR_ITS ---
PROCEDURE INFORMATION: Exam: XR Chest, 2 Views Exam date and time: 06/03/2020 11:56 AM Age: 59 years old Clinical indication: Prior surgery; Surgery type: Gb; Patient HX: Persistent cough x 1 week TECHNIQUE: Imaging protocol: XR of the chest Views: 2 views. COMPARISON: CR XR chest 1V portable [id number] 05/21/2020 4:18 PM FINDINGS: Lungs: Minimal bibasilar atelectasis. Pleural space: Small bilateral pleural effusions, left larger than right. Heart/Mediastinum: Unremarkable. No cardiomegaly. Bones/joints: No acute findings. Organs: Cholecystectomy. XR/XR chest 2V* [id number] IMPRESSION: Small bilateral pleural effusions, minimal bibasilar atelectasis.
== END 2020-06-03 11:29 | disposition home or self-care (01) ==
PROVIDERS: PCP Internal Medicine; Visit Provider Internal Medicine
DX: R05 Cough (principal); J90 Pleural effusion, not elsewhere classified
CPT/HCPCS: 71046; 80048

== ENCOUNTER 2020-06-05 06:54 | Outpatient (CLI) | payer OTHER, SELFPAY ==
--- NOTE | 2020-06-05 10:19 | PFTS_ITS ---
Date of Study:06/05/20 Date of Dictation: MECHANICS: Forced vital capacity (FVC) is reduced. Forced expiratory volume in one second (FEV1) is reduced. FEV1/FVC is reduced. FLOW VOLUME LOOP: The prebronchodilator flow volume loop does not show any peak expiratory flow. LUNG VOLUMES: Not measured DIFFUSING CAPACITY FOR CARBON MONOXIDE: Not measured INTERPRETATION: The prebronchodilator spirometry is consistent with mild restriction. The postbronchodilator spirometry is consistent with moderate obstruction. The flow volume loop during prebronchodilator spirometry does not have a peak expiratory flow. In the absence of lung volume measurement, cannot comment on a combination of obstructive and restrictive ventilatory defect. MTDD
== END 2020-06-05 06:55 | disposition home or self-care (01) ==
PROVIDERS: PCP Internal Medicine; Visit Provider Internal Medicine
DX: R06.02 Shortness of breath (principal)
CPT/HCPCS: 94060; J7611

== ENCOUNTER 2020-06-09 14:52 | Outpatient (CLI) | payer OTHER, SELFPAY | END 2020-06-09 14:53 | disposition home or self-care (01) | LOC: SPT 14:53 | PROVIDERS: PCP Internal Medicine; Visit Provider Podiatrist Foot & Ankle Surgery | DX: Z46.89 Encounter for fitting and adjustment of other specified devices (principal); M76.61 Achilles tendinitis, right leg | CPT/HCPCS: 97760; L4397 ==

== ENCOUNTER 2020-06-19 09:27 | Outpatient (CLI) | payer OTHER, SELFPAY ==
--- NOTE | 2020-06-19 09:52 | XR_ITS ---
WS: [id number] CHEST 2 VIEWS HISTORY: COUGH/LLL CRACKLES COMPARISON: 06/03/2020. Lungs: Blunting of the costophrenic angles bilaterally. Very small bilateral pleural effusions have s lightly improved since 06/03/2020. LEFT effusion is slightly greater than the RIGHT. No pneumonia. Pul monary vasculature is normal. No CHF. Cardiac size: Normal. Mediastinum/Aorta: Mild atherosclerosis aorta. Bones: Normal. XR/XR chest 2V* [id number] IMPRESSION: Very small bilateral pleural effusions with slight improvement since 06/03/2020.
== END 2020-06-19 09:28 | disposition home or self-care (01) ==
PROVIDERS: PCP Internal Medicine; Visit Provider Internal Medicine
DX: R05 Cough (principal); J90 Pleural effusion, not elsewhere classified
CPT/HCPCS: 71046

== ENCOUNTER 2020-09-03 10:38 | Outpatient (RCR) | payer OTHER, SELFPAY | END 2020-10-01 23:59 | disposition home or self-care (01) | LOC: SPT 10:38 | PROVIDERS: PCP Internal Medicine; Referring Provider Podiatrist Foot & Ankle Surgery; Visit Provider Podiatrist Foot & Ankle Surgery | DX: M76.61 Achilles tendinitis, right leg (principal) | CPT/HCPCS: 97110; 97140; 97161 ==

== ENCOUNTER 2021-01-23 09:54 | Outpatient (CLI) | payer OTHER, SELFPAY ==
[2021-01-23 10:00] VITALS: BP 149/80; PULSE 78; RESP 15; TEMP 37.3; O2SAT 95; BMI 31.8
[2021-01-23 11:50] VITALS: BP 145/64; PULSE 75; O2SAT 97
--- NOTE | 2021-01-23 12:00 | PC.NURSE ---
IV removed at 1150. Pt left by POV. Pt driving.
== END 2021-01-23 09:55 | disposition home or self-care (01) ==
LOC: ER 09:55
PROVIDERS: PCP Internal Medicine; Visit Provider Nurse Practitioner Family
DX: U07.1 COVID-19 (principal)
CPT/HCPCS: 36415

== ENCOUNTER 2021-12-01 14:01 | Outpatient (CLI) | payer OTHER, SELFPAY ==
--- NOTE | 2021-12-01 14:15 | MM_ITS ---
WS: [id number] BILATERAL 3D TOMOSYNTHESIS DIGITAL SCREENING MAMMOGRAPHY WITH CAD CLINICAL INFORMATION: SCREENING HISTORY: Screening mammogram. No current complaints. COMPARISON: April 24, 2020 TECHNIQUE: Bilateral CC and MLO views. FINDINGS: Scattered fibroglandular densities bilaterally. Punctate and lucent centered calcifications. Ovoid as ymmetric densities RIGHT breast are unchanged. No suspicious focal mass, asymmetry, calcifications, o r architectural distortion. No evidence of malignancy. MM/[place] [id number] IMPRESSION: BI-RADS: 2-Benign FOLLOW UP: 1 Year Follow-up Recommend return to annual screening mammography.
== END 2021-12-01 14:02 | disposition home or self-care (01) ==
PROVIDERS: PCP Internal Medicine; Visit Provider Internal Medicine
DX: Z12.31 Encounter for screening mammogram for malignant neoplasm of breast (principal)
CPT/HCPCS: 77063; 77067

== ENCOUNTER 2022-12-15 15:13 | Outpatient (CLI) | payer BC, SELFPAY ==
--- NOTE | 2022-12-15 15:19 | MM_ITS ---
WS: [id number] BILATERAL 3D TOMOSYNTHESIS DIGITAL SCREENING MAMMOGRAPHY WITH CAD CLINICAL INFORMATION: SCREEN HISTORY: Screening mammogram. No current complaints. COMPARISON: December 01, 2021 TECHNIQUE: Bilateral CC and MLO views. FINDINGS: Scattered fibroglandular densities bilaterally. 6 mm asymmetric density near the 12:00 position at th e areola appears new or progressed compared to previous. Recommend diagnostic mammography with spot c ompression views and ultrasound if persistent. Additional ovoid asymmetries RIGHT breast are stable. LEFT breast is unremarkable and unchanged. Punctate and lucent centered calcifications. MM/[place] [id number] IMPRESSION: BI-RADS: 0-Incomplete: Need additional imaging evaluation FOLLOW UP: Need Additional Imaging Recommend RIGHT breast diagnostic mammography and ultrasound for further evalua tion.
== END 2022-12-15 15:14 | disposition home or self-care (01) ==
PROVIDERS: PCP Internal Medicine; Visit Provider Internal Medicine
DX: Z12.31 Encounter for screening mammogram for malignant neoplasm of breast (principal)
CPT/HCPCS: 77063; 77067

== ENCOUNTER 2022-12-22 12:49 | Outpatient (CLI) | payer BC, SELFPAY ==
--- NOTE | 2022-12-22 13:05 | MM_ITS ---
WS: [id number] RIGHT 3D TOMOSYNTHESIS DIGITAL MAMMOGRAPHY WITH CAD CLINICAL INFORMATION: ABNORMAL MAMMO HISTORY: Additional views COMPARISON: December 15, 2022 TECHNIQUE: 3 views of the right breast were obtained. FINDINGS: Scattered fibroglandular densities of the right breast. Stable 6 mm asymmetric density near the 1:00 position RIGHT breast. Ultrasound described below ULTRASOUND BREAST RIGHT TECHNIQUE: Ultrasound right breast focused area of concern. CLINICAL INFORMATION: ABNORMAL MAMMO FINDINGS: Ultrasound RIGHT breast performed from the 10 to 2:00 position Ovoid nodular density at the 11:00 position 3 cm from the nipple may represent a small lymph node but technically indeterminate. This has a solid appearance and recommend further evaluation with ultraso und-guided biopsy. Tiny cystic lesion lesion at the 12:00 position likely corresponds to mammographic findings measuring 4.0 x 5.3 x 2.1 mm. This has a benign appearance. MM/[place] [id number] IMPRESSION: BI-RADS: 4-Suspicious Finding-Biopsy Should Be Considered FOLLOW UP: US Guided Biopsy Recommended
== END 2022-12-22 12:50 | disposition home or self-care (01) ==
PROVIDERS: PCP Internal Medicine; Visit Provider Nurse Practitioner Family
DX: R92.8 Other abnormal and inconclusive findings on diagnostic imaging of breast (principal)
CPT/HCPCS: 76642; 77061; G0279